=== PATIENT | female | born 1940 | race Caucasian/White ===

== ENCOUNTER → 2024-09-17 12:50 | Outpatient (REF) | payer MEDICARE, BC, SELFPAY | LOC: RAD 12:50 | PROVIDERS: ATTENDING PHYSICIAN Surgery Vascular Surgery; FAMILY PHYSICIAN Student in an Organized Health Care Education/Training Program | DX: I87.2 Venous insufficiency (chronic) (peripheral) (principal); I77.9 Disorder of arteries and arterioles, unspecified | CPT/HCPCS: 93922; 93925; 93970 ==

== ENCOUNTER 2024-09-19 02:21 | Inpatient (IN) | payer MEDICARE, BC, SELFPAY ==
[2024-09-18 20:05] VITALS: BP 177/98
[2024-09-18 20:22] VITALS: BP 198/78
--- NOTE | 2024-09-18 20:34 | ED.GENMED ---
History of Present Illness
General
Chief Complaint: Musculo-Skeletal Complaint
Source: patient
Exam Limitations: none
Time Seen by Provider: 09/18/24 20:11
Nursing documentation reviewed up to this point in time: agreed with
History of Present Illness
History of Present Illness:
84 yr old female with past medical history of A-fib, chronic right leg wound , chronic SOB presents to the ER for evaluation. Patient lives at home with daughter. Patient apparently had a fall on Friday 5 days ago and injured her left foot and
ankle. She was seen at [facility] had negative x-rays. Since then however she has not been able to walk. She feels dizzy lightheaded like she is in a pass out when she stands up and walks. She reports her legs feel heavy. The heavy
leg feeling is not necessarily new but is gotten worse since falling. Now she is not even able to walk on her own which is what prompted today's ER visit.
She denies any fever or chills. She denies vertigo but just feels lightheaded especially when standing.
She has been treated by [facility] wound center for bilateral lower leg wounds for the past several months.
She is followed by cardiology at [facility]. Has a diagnosis of afib, does not like taking the blood thinners and stopped them. only takes aspirin but only takes it every other day. no known hx of copd or chf .
She reports she is chronically short of breath but getting worse recently. Worse with exertion. no recent weight gain.
Phy Exam
General Physical Exam
General Presentation: no apparent distress
General age: appears stated age
General Skin: warm and dry
General Habitus: normal
General Mental: alert
General Hydration: appears well hydrated
Cardiovascular Exam
Cardiovascular Exam: irregularly irregular
Pulmonary Exam
Pulmonary Exam: lungs clear and other (Slight dyspnea on exertion)
Neurological Exam
Neurological Exam: alert and oriented x3
Musculoskeletal Exam
Musculoskeletal Exam: other (Bilateral lower extremities with pulses right lower leg large open wound)
Skin Exam
Skin Exam: normal color and warm/dry
Psychiatric Exam
Psychiatric Exam: normal mood/affect
Course
Orders/Labs/Results
Orders:
Orders
09/18/24 20:41
Electrocardiogram (*1) Stat
Reason for Study: Abdominal Pain
Cardiac Monitoring- Treatment ONCE
EKG- Treatment ONCE
IV Insert/Care/Rem.- Treatment PRN
Orthostatic VS- Treatment ONCE
09/18/24 20:55
Complete Blood Count/With Diff Urgent
Comprehensive Metabolic Panel Urgent
NT-proBNP Urgent
Comment: ADDON
09/18/24 23:02
Chest [CR Chest - 2 Views ] Urgent
Comment:
Reason For Exam: weakness
09/18/24 23:07
0.9% Sodium Chloride 500 ml [Nss] 500 ml IV BOLUS
09/18/24 23:08
Add On- LAB Urgent
Tests Added?: cardiac bnp
09/18/24 23:14
Urinalysis Reflex To Culture Urgent
Date Specimen was Collected: 09/18/24
Time Specimen was Collected: 23:10
Urine Microscopic Reflex Cult Urgent
Abnormal Lab Results
09/18/24 09/18/24
20:55 23:14
Hct 47.5 H %
(37.0-47.0)
MCH 31.1 H pg
(27.0-31.0)
MCHC 32.6 L g/dL
(33.0-37.0)
Absolute Lymphs (auto) 4.4 H 10^3/uL
(1.2-3.4)
Absolute Monos (auto) 0.8 H 10^3/uL
(0.1-0.6)
BUN 39 H mg/dl
(7-17)
Creatinine 1.5 H mg/dL
(0.6-1.0)
Glucose 149 H mg/dl
(70-99)
Calcium 10.3 H mg/dl
(8.4-10.2)
Ur Occult Blood Reflex 1+ A
(Negative)
Urine RBC 3-6 A /HPF
(0-2)
Urine Albumin (Reflex) 2+ A
(Neg - Trace)
09/18/24 20:55
09/18/24 20:55
Vital Signs
Initial and Last Documented VS:
Initial Vital Signs
Pulse Resp BP Pulse Ox
83 16 177/98 99
09/18/24 20:05 09/18/24 20:05 09/18/24 20:05 09/18/24 20:05
Last Documented Vital Signs
Temp Pulse Resp BP Pulse Ox
97.8 F 87 25 198/78 95
09/18/24 23:16 09/18/24 20:30 09/18/24 20:30 09/18/24 20:22 09/18/24 21:00
Dressed Poultry Grader consulted with Physician
Dressed Poultry Grader consulted with physician?: Yes
Name of Physician Consulted: DR Guillen
MDM/Problems Addressed
Differential Diagnosis Includes:
Not limited to weakness dehydration fluid overload CHF COPD
MDM/Problems Addressed:
Patient is a 84-year-old female presents today for evaluation. Patient fell on September 13 after her legs gave out seen a sharona Mcduffie for left foot ankle pain x-rays were negative. Since then she has not had increasing leg weakness is not able to
walk. She also feels very dizzy and lightheaded. Patient has a history of shortness of breath which has been worsening. She does have a history of A-fib and is currently not on anticoagulation. She did stop this on her own. In addition she
stopped taking Eliquis on her own.
In addition patient has chronic leg wounds being managed at wound care by lesly Mcduffie.
On exam patient seems dyspneic with exertion reports again this is not necessarily new but getting worse over the past 1 week. Her BNP is elevated at 3300 with no prior labs for comparison. Her x-ray does feel hazy and with her Lasix being stopped
likely some fluid overload. Her BUN/creatinine however elevated to 39 1.5 no prior comparison labs .
UA neg for infection.
will order a dose of lasix now. With dyspnea,weakness, noncompliance of medication ,likely component of heart failure will recommend admission. Case discussed with the hospitalist
Chronic conditions affecting care:
A-fib stop anticoagulation, history of being on Lasix stopped for least
*Radiology
Radiology exam reviewed: preliminary read by ED provider (fluid overload )
*Pulse Oximetry
SaO2: 99
Oxygen Mode of Delivery: Room air
Patient hypoxic: no
*EKG
Interpreted by ED Provider?: Yes
Heart Rate: 80
Rate: normal
Rhythm: a-fib
*Critical Care Note
Total Time (30-74mins, 75-104mins- exclusive of procedures): Not Applicable
ED Attending Note
-
Portions of this chart may have been created with voice recognition software.� Occasional wrong word or��sound alike� substitutions may have occurred due to the inherent limitations of voice recognition software.
Discharge Plan
Departure
Patient Disposition: Admit
Date of Disposition: 09/19/24
Time of Disposition: 00:23
Admit to: Med/Surg
Admit to doctor: hospitalist
Presentation/result/management discussed w/ accepting MD/DO: Hospitalist
Patient with high blood pressure during this ER visit?: Yes
Condition: Fair
Covid-19: Not Applicable
Discharge Problem:
Weakness, GEORGES (dyspnea on exertion), Fluid overload, Acute renal insufficiency
Prescriptions:
No Action
indapamide 2.5 mg Tablet
2.5 mg PO DAILY
metoprolol tartrate 100 mg Tablet
100 mg PO BID
aspirin [Aspir-81] 81 mg Tablet,Delayed Release (Dr/Ec)
81 mg PO Q OTHER DAY
glimepiride 1 mg Tablet
1 mg PO DAILY
ascorbic acid (vitamin C) [Vitamin C] 500 mg Tablet
500 mg PO DAILY
biotin 10,000 mcg Capsule
10,000 mcg PO
zinc 50 mg Tablet
50 mg PO DAILY
furosemide 20 mg Tablet
20 mg PO PRN PRN (Reason: fluid retention)
Patient Comments:
pt's instructions report 2-3 times/week. pt stopped taking it approx three weeks ago without informing provider
glucosamine-chondroitin 1,500-1,200 mg/30 mL Liquid
PO
ezetimibe-simvastatin [Vytorin 10-40] 10-40 mg Tablet
1 tab PO DAILY
fenofibrate nanocrystallized [Tricor] 145 mg Tablet
145 mg PO DAILY
cholecalciferol (vitamin D3) [Vitamin D3] 125 mcg (5,000 unit) Tablet
125 mcg PO DAILY
Referrals:
UNKNOWN - PT DOES,NOT KNOW [Family Provider]
Interventions
Interventions:
*Risk Screen - Suicide Last Done: 09/18/24 20:37
*General Assessment Last Done: 09/18/24 20:37
*Neglect/Abuse Screening Last Done: 09/18/24 20:37
*ED- Fall Risk Assessment Last Done: 09/18/24 20:37
*ED COVID-19 Vaccine History Last Done: 09/18/24 20:37
ED-Musculoskeletal Assessment Last Done: 09/18/24 21:00
Discharge Date and Time
Print Language: TRISTANIAN
[2024-09-18 20:36] VITALS: BMI 30.7
[2024-09-18 21:04] VITALS: BP 190/91
[2024-09-18 21:07] LABS: Hematocrit 47.5 % (37.0-47.0); Hemoglobin 15.5 g/dL (12.0-16.0); Mean Corp Hgb Conc. 32.6 g/dL (33.0-37.0); Mean Corpuscular Volume 95.2 fL (81.0-99.0); Nucleated Red Blood Cells % 0 %; Platelet Count 183 10^3/uL (130-400); Red Cell Dist. Width 13.5 % (11.5-14.5)
[2024-09-18 21:08] VITALS: BP 201/89
[2024-09-18 21:13] VITALS: BP 190/91; BP 201/89; PULSE 88; PULSE 91
[2024-09-18 21:32] LABS: ALT (SGPT) 14 U/L (0-35); AST (SGOT) 23 U/L (14-36); Albumin 4.6 g/dl (3.5-5.0); Alkaline Phosphatase 101 U/L (38-126); Blood Urea Nitrogen 39 mg/dl (7-17); Calcium 10.3 mg/dl (8.4-10.2); Carbon Dioxide 30 mmol/L (22-30); Chloride 101 mmol/L (98-107); Estimated Creatinine Clearance 30 ml/min; Glucose 149 mg/dl (70-99); Potassium 3.8 mmol/L (3.5-5.1); Sodium 140 mmol/L (135-145); Total Protein 7.4 g/dl (6.3-8.2); eGFR 34.15
[2024-09-18 23:22] LABS: Urine Character Clear (Clear)
[2024-09-18 23:37] VITALS: BP 189/102
[2024-09-18] MEDS: NSS 500 IV (23:40)
[2024-09-19] VITALS (11 sets, daily range): BP systolic 128–179; BP diastolic 73–108; PULSE 74–109; O2SAT 94–95; BMI 29.3
[2024-09-19 00:12] LABS: Urine Squamous Cell None seen /LPF (Few)
[2024-09-19 00:13] LABS: Urine White Cell 0-2 /HPF (0-5)
--- NOTE | 2024-09-19 01:42 | HPS.HSE ---
Family Physician
-
Family Physician: NOT KNOW UNKNOWN - PT DOES
Chief Complaint
-
Weakness, Ataxia
History of Present Illness
Patient is an 84y F with PMH significant for hypertension, DM-II and A-Fib who presents to ED complaining of LE weakness and inability to walk. History obtained from patient and her daughter at the bedside. Patient states that she has had
intermittent issues with LE weakness over the past several months. Her legs feels heavy and she is unsteady. These symptoms typically occur with ambulation and improve with a few minutes of rest. On Friday, she noted that her LLE 'gave out' while
walking and she fell. She denies head injury, LOC, etc. She complained of pain in the L foot and ankle after the fall. She was seen at [facility] ED where x-rays were reportedly negative for fracture / dislocation.
Patient states that her pain has improved since that time; however, she has remained completely unable to stand / walk / etc.
Patient complains of heaviness / weakness sensation in the legs. She denies significant pain, but complains that legs won't hold her weight.
She had non-invasive vascular studies done on 09/17 and has an upcoming appointment with Dr. Carey to review these.
She is followed by Wound Care at [facility] for bilateral LE wounds. Patient notes that her legs have been more edematous and the wounds have been leaking / oozing more as a result.
She complains of shortness of breath with any exertion. This also has been present x months - though is more severe / consistent recently.
She does complain of occasional chest pain / pressure / heaviness - none at present.
Medical History
Past Medical History
Past Medical History: Reports Other
Additional Past Medical History:
Hypertension
Atrial Fibrillation
DM-II
CLL
History of Graves Disease
Venous Insufficiency
Chronic LE Wounds
Skin Cancer
Past Surgical History: Reports Other
Additional Past Surgical History:
Mohs Surgery
x 2
Hernia Repair
Social History
Tobacco: Former Smoker (Quit smoking 40 years ago. Approx 30 pack years total use.)
Alcohol: None
Drug: None
Family History
Family History: Not pertinent
Allergies / Home Medications
Allergies reflects when Allergies were last updated in [facility].
Home Medications with original date entered in [facility]
Allergy/Medication List:
Allergies
Allergy/AdvReac Type Severity Reaction Status Date / Time
No Known Allergies Allergy Unverified 09/18/24 20:08
Home Medications
ascorbic acid (vitamin C) 500 mg tablet (Vitamin C) 500 mg PO DAILY 09/18/24
aspirin 81 mg tablet,delayed release 81 mg PO Q OTHER DAY 09/18/24
biotin 10,000 mcg capsule 10,000 mcg PO 09/18/24
cholecalciferol (vitamin D3) 125 mcg (5,000 unit) tablet (Vitamin D3) 125 mcg PO DAILY 09/18/24
ezetimibe 10 mg-simvastatin 40 mg tablet (Vytorin) 1 tab PO DAILY 09/18/24
fenofibrate nanocrystallized 145 mg tablet (Tricor) 145 mg PO DAILY 09/18/24
furosemide 20 mg tablet 20 mg PO PRN PRN fluid retention 09/18/24
glimepiride 1 mg tablet 1 mg PO DAILY 09/18/24
glucosamine-chondroitin 1,500 mg -1,200 mg/30 mL oral liquid ml PO 09/18/24
indapamide 2.5 mg tablet 2.5 mg PO DAILY 09/18/24
metoprolol tartrate 100 mg tablet 100 mg PO BID 09/18/24
zinc 50 mg tablet 50 mg PO DAILY 09/18/24
Review of Systems
-
History Source: Patient
A 12 point ROS was completed and negative except as noted: Yes
Constitutional: Reports Fatigue; Denies Fever or Chills
EENT: Denies Sore Throat
Respiratory: Reports Trouble Breathing; Denies Cough or Hemoptysis
Cardiac: Reports Chest Pain; Denies Diaphoresis, Palpitations or Syncope
Abdomen/GI: Denies Abdominal Pain, Nausea, Vomiting, Diarrhea, Bloody Stools or Black Stools
: Denies Dysuria, Frequency or Flank Pain
Musculoskeletal: Reports Edema
Neurological: Reports Weakness; Denies Dizzy or Headache
Physical Exam
Vital Signs
Vital Signs
Temp Pulse Resp BP Pulse Ox
97.8 F 73 25 147/81 95
09/18/24 23:16 09/19/24 01:30 09/19/24 01:30 09/19/24 01:00 09/19/24 01:30
Physical Exam
General: Other (84y F in no acute distress.)
HEENT: Moist mucous membranes, PERRLA and Other (No JVD or HJR.)
Respiratory: Clear; No Wheezes, Rales or Rhonchi
Cardiac: S1/S2, Irregular Rhythm and Murmur (II/ NICK)
GI: Soft, Non Tender, Non Distended and Normal Bowel Sounds
Musculoskeletal: No Clubbing, No Cyanosis and Other (2+ pitting edema to the knees bilaterally.)
Skin: Other (Wounds bilateral lower legs with dressings newly placed. No bleeding / strikethrough.)
Neuro: AO x 3
Laboratory Results
-
09/18/24 20:55
09/18/24 20:55
Laboratory Results
Total Bilirubin 0.7 mg/dl (0.2-1.3) 09/18/24 20:55
AST 23 U/L (14-36) 09/18/24 20:55
ALT 14 U/L (0-35) 09/18/24 20:55
Alkaline Phosphatase 101 U/L (38-126) 09/18/24 20:55
Impression/Plan
-
A/P: Patient is an 84y F with PMH significant for A-Fib, HTN and DM-II who presents to ED complaining of LE weakness / ataxia for about one week.
LE Weakness / Ataxia
- Admit for further evaluation and treatment.
- Unclear etiology of new gait dysfunction / LE weakness.
- Does not seem wholly due to edema / CHF / etc.
- PT / OT evaluations.
- Check MR L-spine in the AM.
- Had recent ABIs done for Vascular which suggest RLE infrapopliteal disease.
- Treat CHF as noted below and follow for any clinical changes.
Acute on Chronic HF - Unknown Type
- BNP elevated and pos LE edema on exam.
- IV Lasix daily and follow I/Os, daily weights, etc.
- Update Echo.
- Follow for clinical improvement.
- Patient previously on Lasix about three times per week but notes that she has not been taking it lately.
EMILIE v CKD
- SCr = 1.5 with no prior values for comparison.
- Follow for changes with diuresis. Follow over the next 48-72 hours to establish baseline.
Atrial Fibrillation - Unknown Type
- Stable. Rate controlled on current regimen.
- Continue Toprol with holding parameters.
- Patient has declined OAC, Watchman, etc in the past despite risk of embolic phenomena / stroke / etc.
Benign Hypertension
- BP significantly elevated on initial arrival.
- Follow for improvement with diuresis as noted above. Adjust regimen as needed.
DM-II
- Stable. Hold sulfonylurea.
- Follow glucose and cover with SSI as needed.
- Update A1C.
History of Graves Disease
- Check TFTs.
Chronic Venous Insufficiency
Chronic LE Wounds
- Wound Care eval for local care recommendations during stay.
DVT Prophylaxis: Lovenox
Code Status: Full
[2024-09-19] MEDS: LASIX 40 MG IV ×2 (01:43→08:47)
[2024-09-19 04:13] LABS: Hematocrit 44.2 % (37.0-47.0); Hemoglobin 14.6 g/dL (12.0-16.0); Mean Corp Hgb Conc. 33.0 g/dL (33.0-37.0); Mean Corpuscular Volume 94.4 fL (81.0-99.0); Platelet Count 169 10^3/uL (130-400); Red Cell Dist. Width 13.5 % (11.5-14.5)
[2024-09-19 04:31] LABS: Blood Urea Nitrogen 36 mg/dl (7-17); Calcium 10.3 mg/dl (8.4-10.2); Carbon Dioxide 32 mmol/L (22-30); Chloride 101 mmol/L (98-107); Estimated Creatinine Clearance 31 ml/min; Glucose 121 mg/dl (70-99); HDL Cholesterol 65 mg/dl; LDL Cholesterol, Calculated 53 mg/dl; Potassium 3.9 mmol/L (3.5-5.1); Sodium 139 mmol/L (135-145); Very Low Density Lipoprotein 29 mg/dl (0-30); eGFR 37.10
[2024-09-19 04:40] LABS: Troponin I < 0.012 ng/ml
[2024-09-19 07:35] LABS: Glucose - Point of Care 133 mg/dl (70-99)
[2024-09-19] MEDS: LOPRESSOR 100 MG PO ×2 (08:46→20:13)
[2024-09-19] MEDS: FLUSH (NSS) 2 FLUSH IV ×2 (08:47→13:47)
[2024-09-19] MEDS: ASPIR LOW (ENTERIC COATED) 81 MG PO (08:47)
[2024-09-19 09:38] LABS: Free T3 4.41 pg/ml (2.77-5.27)
[2024-09-19 09:49] LABS: Troponin I < 0.012 ng/ml
--- NOTE | 2024-09-19 10:00 | PTCARENOTE ---
Pt normally continent of urine but it is difficult for pt to transfer to commode right now with leg weakness. Pt wants to use purewick. Discussed concern for infection. Pt agreeable to using purewick for Lasix IV this morning and then removing it.
Plan to use either commode or bedpan for elimination.
--- NOTE | 2024-09-19 10:13 | W.PN.HOSP.TC ---
Today's Communication/Plan
-
see PN
Assessment / Plan
Assessment / Plan
84yo F with PMHX of chronic ambulatory deficiency, CAD HLD, DM came with inability to carry weight on her legs started after fall 5 days before admission, when her L leg gave out. After that she also experienced some sacral tenderness as she fell
down on her buttocks. XR in [facility] reportedly neg for Fx as patient was evaluated there after the fall. No saddle paresthesia, urianry or stool incontinence or retention reported, No LE paresthesias. Patient also had a long Hx of
walking with walker with intermittent b/l LE stiffness. ALso LE wounds with leukocytosis and swelling while patient stopped her Lasix
A/P:
#Ambulatory dysfunction s/p fall on chronic ambulatory deficiency with LE stiffness
No LE pain concerning for Fx
MRI lumbar pending
PT/OT
Neuro eval with recent Hx of LLE suddden weakness causing fall
check AM cortisol
With Hx of fib off Ac - MRI brain
#PAD
#venous insufficiency with LE wounds and mild surrounding cellulitis
#Leukocytosis
already has appt with
wound care while inpatient
no respiratory symptoms, chest XR without pneumonia, no UTI sings on UA
Ancef
#CHF, unspecified, acute on chronic
#Atrial Fibrillation - Unknown Type
Stable. Rate controlled on current regimen.
Continue Toprol with holding parameters.
Patient has declined OAC, Watchman, etc in the past despite risk of embolic phenomena / stroke / etc.
Patient stopped taking her q48h lasix few weeks ago
LE edema on admission
Echo, Lasix, follow daily weight, Cr, electrolytes
telemetry
Trops WNL
#Hyperthyroidism, subclinical with Hx of graves disease
FT4 WNL, check FT3
#CKD stage 3b
follow Cr
#Mild hypercalcemia
check PTH and vit D 0.25
no overt signs of maligancy on chest XR
#DM type 2 with neuropathy
AccuCheck, DM diet, Insulin SS
hold glimepiride, check HgbA1c
#CAD
#EssentiL HTN
#HLD
cont home meds, adjust fenofibrate according to kidney function
DVT ppx hep
Full code
I have spent at least 60min reviewing chart, test results, communication with cosnultants and providing direct patient care
Anticipated Discharge: > 48 hours
Subjective/Interval History
-
Date of Service: September 19, 2024
Objective Data
-
Labs:
Laboratory Results
09/19/24
04:06
WBC 14.1 H
Hgb 14.6
Hct 44.2
Plt Count 169
Sodium 139
Potassium 3.9
Chloride 101
Carbon Dioxide 32 H
BUN 36 H
Creatinine 1.4 H
Glucose 121 H
Calcium 10.3 H
Vital Signs:
Vital Signs
Temp Pulse Resp BP Pulse Ox
97.3 F 89 18 162/75 96
09/19/24 07:29 09/19/24 08:46 09/19/24 07:29 09/19/24 08:46 09/19/24 07:29
I&O
09/18/24 09/19/24 09/20/24
06:59 06:59 06:59
Output Total 800 / 800
Balance -800 / -800
Review of Systems
-
History Source: Patient
All other systems: Reviewed and negative
Physical Exam
-
General: No Apparent Distress
HEENT: Normocephalic
Cardiac: Regular Rhythm
GI: Soft, Nontender and Nondistended
Musculoskeletal: No Clubbing and No Cyanosis
Neuro: Awake, Alert, Oriented, AO x 3 and No Motor Deficits
Psych: Calm
--- NOTE | 2024-09-19 10:37 | W.PN.UPDATE ---
Update Note
Progress Note Update
Discussed suppressed TSH with Endo: recheck TFT as an outpatient probably no later than 4 weeks. With currently no overt signs of hyperthyroidism - no direct indication for methimazole
--- NOTE | 2024-09-19 10:49 | CON.NEURO ---
Neuro Assessment/Plan
Assessment
84 year old woman, (diabetic) peripheral neuropathy
check Acetylcholine receptor ab r/o MG
no evidence for stroke, no need for brain MRI. and in any case she should be on blood thinners
No need for lumbar MRI, discussed with patient low yield, and if we found something she wouldn't want surgery anyway.
also discussed EMG after wounds heal - again low yield and she'd rather not.
afib, she chose to not be on anticoagulants.
Consultation
Order
Date of Consultation: 09/19/24
Requesting Provider: Baljit Ames
Reason for Consult: leg weakness
Subjective/Objective
Subjective Data
Date of Service: September 19, 2024
from h&p:
Patient is an 84y F with PMH significant for hypertension, DM-II and A-Fib who presents to ED complaining of LE weakness and inability to walk. History obtained from patient and her daughter at the bedside. Patient states that she has had
intermittent issues with LE weakness over the past several months. Her legs feels heavy and she is unsteady. These symptoms typically occur with ambulation and improve with a few minutes of rest. On Friday, she noted that her LLE 'gave out' while
walking and she fell. She denies head injury, LOC, etc. She complained of pain in the L foot and ankle after the fall. She was seen at [facility] ED where x-rays were reportedly negative for fracture / dislocation.
Patient states that her pain has improved since that time; however, she has remained completely unable to stand / walk / etc.
Patient complains of heaviness / weakness sensation in the legs. She denies significant pain, but complains that legs won't hold her weight.
She had non-invasive vascular studies done on 09/17 and has an upcoming appointment with Dr. Carey to review these.
She is followed by Wound Care at [facility] for bilateral LE wounds. Patient notes that her legs have been more edematous and the wounds have been leaking / oozing more as a result.
She complains of shortness of breath with any exertion. This also has been present x months - though is more severe / consistent recently.
She does complain of occasional chest pain / pressure / heaviness - none at present.
patient reports the symptoms seem to affect both legs for the past ~1 year
Objective Data
Vital Signs
Temp Pulse Resp BP Pulse Ox
36.3 C 89 18 162/75 96
09/19/24 07:29 09/19/24 08:46 09/19/24 07:29 09/19/24 08:46 09/19/24 07:29
Lab Results
09/19/24 04:06
09/19/24 04:06
Sodium 139 mmol/L (135-145) 09/19/24 04:06
Potassium 3.9 mmol/L (3.5-5.1) 09/19/24 04:06
BUN 36 mg/dl (7-17) H 09/19/24 04:06
Glucose 121 mg/dl (70-99) H 09/19/24 04:06
Calcium 10.3 mg/dl (8.4-10.2) H 09/19/24 04:06
Ewc-Q-Llhhgshkhpe Pept 3300 pg/ml 09/18/24 20:55
LDL Cholesterol, Calc 53 mg/dl 09/19/24 04:06
Patient Allergies
No Known Allergies Allergy (Unverified 09/18/24 20:08)
Physical Exam
-
AAOx3, speech clear, language intact
VFF, EOMI, face symmetric
full strength b/l UE
b/l LE 4/5 proximally, 5/5 distal.
right hallux dystonia.
severe vibratory loss in ankles, moderate in the knees
bilateral LE wounds above ankles, wrapped.
+bradykinesia, no cogwheel rigidity, no tremor
FNF distal 1/3 dysmetria
Medications
-
Active Medications
Generic Name Dose Route Start Last Admin
Trade Name Freq PRN Reason Stop Dose Admin
Acetaminophen 650 mg 09/19/24 03:28
Acetaminophen 325 Mg Tablet PO 10/17/24 03:27
Q4HPRN PRN
Mild Pain / Temp > 101
Aspirin 81 mg 09/19/24 08:00 09/19/24 08:47
Aspirin 81 Mg (Enteric Coated) Tablet PO 10/17/24 07:59 81 mg
DAILY EDMOND Administration
Atorvastatin Calcium 20 mg 09/20/24 18:00
Atorvastatin (Lipitor) 20 Mg Tablet PO 10/18/24 17:59
QPM EDMOND
Dextrose 12.5 grams 09/19/24 03:28
Dextrose 50% (0.5 Grams/Ml) 50 Ml Syringe IV 10/17/24 03:27
[id number] PRN
hypoglycemia
Protocol
Diazepam 2 mg 09/19/24 08:08
Diazepam 2 Mg Tablet PO
ONCE PRN PRN
cert occupational therapy asst to MRI
Ezetimibe 10 mg 09/20/24 18:00
Ezetimibe (Zetia) 10 Mg Tablet PO 10/18/24 17:59
QPM EDMOND
Fenofibrate 48 mg 09/20/24 08:00
Fenofibrate 48 Mg Tablet PO 10/18/24 07:59
DAILY EDMOND
Furosemide 40 mg 09/19/24 08:00 09/19/24 08:47
Furosemide 40 Mg (10 Mg/Ml) 4 Ml Vial IV 10/17/24 07:59 40 mg
DAILY EDMOND Administration
Glucagon 1 mg 09/19/24 03:28
Glucagon 1 Mg Vial IM 10/17/24 03:27
PRN PRN
hypoglycemia
Protocol
Heparin Sodium 5,000 units 09/19/24 16:00
Heparin 5,000 Units/Ml 1 Ml Vial SC 10/17/24 15:59
Q8 EDMOND
Cefazolin Sodium 1 gram in 5 mls @ 60 mls/hr 09/19/24 12:00
Ancef IV
Q8H EDMOND
Insulin Aspart 0 units 09/19/24 07:30 09/19/24 08:26
Insulin Aspart Low Resistance 300 Units/3 Ml Pen.Injctr SC 10/17/24 07:29 Not Given
AC EDMOND
Protocol
Metoprolol Tartrate 100 mg 09/19/24 08:00 09/19/24 08:46
Metoprolol 100 Mg Regular Release Tablet PO 10/17/24 07:59 100 mg
BID EDMOND Administration
Sodium Chloride 0 flush 09/19/24 04:00 09/19/24 08:47
Sodium Chloride 0.9% (Flush) Syringe IV 10/17/24 03:59 2 flush
PER PROTOCOL EDMOND Administration
Home Medications
�Medication �Instructions �Recorded
ascorbic acid (vitamin C) 500 mg 500 mg PO DAILY 09/18/24
tablet (Vitamin C)
aspirin 81 mg tablet,delayed 81 mg PO Q OTHER DAY 09/18/24
release
biotin 10,000 mcg capsule 10,000 mcg PO 09/18/24
cholecalciferol (vitamin D3) 125 125 mcg PO DAILY 09/18/24
mcg (5,000 unit) tablet (Vitamin
D3)
ezetimibe 10 mg-simvastatin 40 mg 1 tab PO DAILY 09/18/24
tablet (Vytorin)
fenofibrate nanocrystallized 145 145 mg PO DAILY 09/18/24
mg tablet (Tricor)
furosemide 20 mg tablet 20 mg PO PRN PRN fluid retention 09/18/24
glimepiride 1 mg tablet 1 mg PO DAILY 09/18/24
glucosamine-chondroitin 1,500 mg ml PO 09/18/24
-1,200 mg/30 mL oral liquid
indapamide 2.5 mg tablet 2.5 mg PO DAILY 09/18/24
metoprolol tartrate 100 mg tablet 100 mg PO BID 09/18/24
zinc 50 mg tablet 50 mg PO DAILY 09/18/24
[2024-09-19 11:00] LABS: Glycohemoglobin (HgbA1c) 6.9 % (4.0-5.6)
--- NOTE | 2024-09-19 12:30 | PTCARENOTE ---
Pt refusing to have accu check obtained at lunch time stating that she will only let us check her blood sugar once a day. Pt states she only checks it once a week at home and it is always fine. RN attempted to explain reasoning of why we are
checking her blood sugar throughout the course of the day. Pt verbalized understanding but still refusing. Made Dr. Ames aware of above.
[2024-09-19] MEDS: ANCEF 5 IV ×2 (13:47→20:11)
--- NOTE | 2024-09-19 15:37 | CM ---
CM met with pt and dtr/Gissel bedside
Pt resides with her dtr in a ranc[place] with 3 EARL
Pt is indep with ambulation and personal care
She utilizes a SPC on steps, WW for short distances and has a transport chair for longer distances
Dtr works out of the home and pt alone during the day
Pt has hx with private paying for [employer] with [employer]- was set to start 24 hours weekly while dtr goes to work starting tomorrow
PCP- Harriet Gomez
Rx- [employer]
SNF recs by therapy
Pt requesting [facility], open to other locations if needed
She is aware that Medicare has certain qualifying diagnoses
Encouraged SNF backups
PAC provided and referrals sent via [facility]
Pt's was a rocio
Discharge Disposition -anticipate SNF, pt requesting [facility]
[2024-09-19] MEDS: ZETIA 10 MG PO (18:10)
[2024-09-19] MEDS: TRICOR 48 MG PO (18:10)
[2024-09-19] MEDS: LIPITOR 20 MG PO (18:10)
[2024-09-20] VITALS (7 sets, daily range): BP systolic 145–161; BP diastolic 72–87; PULSE 85–87; BMI 28.5
[2024-09-20] MEDS: ANCEF 5 IV ×3 (03:06→19:56)
[2024-09-20 07:31] LABS: Glucose - Point of Care 151 mg/dl (70-99)
[2024-09-20 08:02] LABS: Hematocrit 44.2 % (37.0-47.0); Hemoglobin 14.7 g/dL (12.0-16.0); Mean Corp Hgb Conc. 33.3 g/dL (33.0-37.0); Mean Corpuscular Volume 93.2 fL (81.0-99.0); Platelet Count 182 10^3/uL (130-400); Red Cell Dist. Width 13.4 % (11.5-14.5)
[2024-09-20 08:03] LABS: Nucleated Red Blood Cells % 0 %
[2024-09-20] MEDS: ASPIR LOW (ENTERIC COATED) 81 MG PO (08:12)
[2024-09-20] MEDS: LOPRESSOR 100 MG PO ×2 (08:12→19:55)
[2024-09-20] MEDS: LASIX 40 MG IV (08:12)
[2024-09-20 08:27] LABS: ALT (SGPT) 10 U/L (0-35); AST (SGOT) 21 U/L (14-36); Albumin 4.3 g/dl (3.5-5.0); Alkaline Phosphatase 97 U/L (38-126); Blood Urea Nitrogen 48 mg/dl (7-17); Calcium 10.2 mg/dl (8.4-10.2); Carbon Dioxide 28 mmol/L (22-30); Chloride 97 mmol/L (98-107); Estimated Creatinine Clearance 25 ml/min; Glucose 149 mg/dl (70-99); Magnesium 1.8 mg/dl (1.6-2.3); Potassium 3.5 mmol/L (3.5-5.1); Sodium 136 mmol/L (135-145); Total Protein 7.0 g/dl (6.3-8.2); eGFR 29.39
[2024-09-20 08:56] LABS: Cortisol, Random 27.6 ug/dl
--- NOTE | 2024-09-20 11:14 | WOUNDNOTE ---
R MEDIAL LOWER LEG
--- NOTE | 2024-09-20 11:16 | WOUNDNOTE ---
L MEDIAL LOWER LEG
--- NOTE | 2024-09-20 11:20 | WOUNDNOTE ---
WON RN note: Patient admitted with acute renal insufficiency, S/P fall.
See H&P for complete history. Lives with daughter.
PMH: Past Medical History: Hypertension, Atrial Fibrillation, DM-II, CLL, History of Graves Disease, Venous Insufficiency-follows with Dr. Carey.
Chronic LE Wounds-goes to [facility] wound center and Skin Cancer-Moh's
Wound Location and type/assessment: Patient admitted with: R medial lower leg full thickness venous/arterial ulcer. Patient reports she has had wound since april and goes to see Dr. Olmos at [facility]. Last week she saw Dr. Caldwell
and had wound debridement done then. Today base is mix of pink, brown and lópez eschar, + odor. Reviewed current wound care with patient, compression too painful she reports. Arterial studies done last week show R TBI 0.14, L TBI 0.85. + palpable
pedal pulse in L leg, non palpable on R leg. Patient states she has an apt with Dr. Carey this Friday. Heels are intact, blanchable red, tiny scab on R heel, foams in use. Air chair cushion in use under heels. L medial lower leg with small dried
up venous ulcer, no drainage on dressing. L lateral ankle blanchable red, s/p fall at home. Patient able to turn self to side, blanchable red sacrum.
Appetite: good. Encourage protein in diet.
Pressure redistribution devices in place: On Accumax, pillow under air cushion added to offload heels. Pressure ulcer prevention measures reviewed with patient, states she understands. Patient gets oob to commode.
Plan: Local wound care applied, will order Dakin's WTD dressing daily. Confirmed wound care orders with Dr. Marie and suggested vascular may want to see patient while in hospital. Updated nurse Ankur. Gave patient information on wound center here,
upon request of patient. Updated care plan and will follow as needed.
Note to case management of equipment requested for discharge: VN if patient can't do self.
Recommend follow up at [facility] or wound care center upon discharge.
--- NOTE | 2024-09-20 12:35 | W.PN.HOSP.TC ---
Today's Communication/Plan
-
Vascular input
DC Lasix
Trend creatinine
Monitor blood pressure
Assessment / Plan
Assessment / Plan
84yo F with PMHX of chronic ambulatory deficiency, CAD HLD, DM came with inability to carry weight on her legs started after fall 5 days before admission, when her L leg gave out. After that she also experienced some sacral tenderness as she fell
down on her buttocks. XR in [facility] reportedly neg for Fx as patient was evaluated there after the fall. No saddle paresthesia, urianry or stool incontinence or retention reported, No LE paresthesias. Patient also had a long Hx of
walking with walker with intermittent b/l LE stiffness. ALso LE wounds with leukocytosis and swelling while patient stopped her Lasix
A/P:
#PAD
#venous insufficiency with LE wounds and mild surrounding cellulitis
#Leukocytosis
wound care while inpatient
no respiratory symptoms, chest XR without pneumonia, no UTI sings on UA
Ancef
Will ask vascular input for right lower extremity wound/ulcer with abnormal JARRED
#Ambulatory dysfunction s/p fall on chronic ambulatory deficiency with LE stiffness
No LE pain concerning for Fx
PT/OT
Neuro eval with recent Hx of LLE sudden weakness causing fall-myasthenia gravis lab pending
cortisol wnl
Neuro recs noted
# Mild acute on chronic HFpEF secondary to noncompliance with medication
#Atrial Fibrillation - Unknown Type
Stable. Rate controlled on current regimen.
Continue Toprol with holding parameters.
Patient has declined OAC, Watchman, etc in the past despite risk of embolic phenomena / stroke / etc.
Patient stopped taking her q48h lasix few weeks ago
LE edema on admission
Echo with EF of 55%. Normal left ventricular chamber size. Normal left ventricular systolic function. Normal regional wall motion. Mild concentric LVH. Mild tricuspid regurgitation. PASP of 30 to 35 mmHg.
telemetry
Trops WNL
#Hyperthyroidism, subclinical with Hx of graves disease
Dr. Ames-Discussed suppressed TSH with Endo: recheck TFT as an outpatient probably no later than 4 weeks. With currently no overt signs of hyperthyroidism - no direct indication for methimazole
# Mild EMILIE on CKD stage 3b
follow Cr
Creat of 1.4 bumped to 1.7
DC IV diuretics
#Mild hypercalcemia
check PTH and vit D 0.25
no overt signs of maligancy on chest XR
#DM type 2 with neuropathy
AccuCheck, DM diet, Insulin SS
hold glimepiride, check HgbA1c at 6.9
#CAD
#EssentiL HTN
#HLD
cont home meds, adjust fenofibrate according to kidney function
DVT ppx hep
Full code
PT/OT SNF.
Anticipated Discharge: 24 - 48 hours
Subjective/Interval History
-
Date of Service: September 20, 2024
States lower extremity edema has improved
Objective Data
-
Labs:
Laboratory Results
09/20/24
07:10
WBC 15.7 H
Hgb 14.7
Hct 44.2
Plt Count 182
Sodium 136
Potassium 3.5
Chloride 97 L
Carbon Dioxide 28
BUN 48 H
Creatinine 1.7 H
Glucose 149 H
Calcium 10.2
Total Bilirubin 0.9
AST 21
ALT 10
Alkaline Phosphatase 97
Vital Signs:
Vital Signs
Temp Pulse Resp BP Pulse Ox
97.8 F 100 18 161/86 94
09/20/24 06:54 09/20/24 06:54 09/20/24 06:54 09/20/24 06:54 09/20/24 06:54
I&O
09/19/24 09/20/24 09/21/24
06:59 06:59 06:59
Intake Total 1220 / 1220
Output Total 800 / 800 1600 / 1600
Balance -800 / -800 -380 / -380
Physical Exam
-
General: No Apparent Distress
HEENT: Normocephalic
Cardiac: Regular Rhythm
GI: Soft, Nontender and Nondistended
Musculoskeletal: No Clubbing, No Cyanosis and Other (Right medial lower leg wound noted)
Neuro: Awake, Alert, Oriented, AO x 3 and No Motor Deficits
Psych: Calm
Data Reviewed
-
Total Time Spent with Patient (in minutes): 55
--- NOTE | 2024-09-20 13:34 | CM ---
Addendum entered by Kelvin Nicole 09/20/24 15:57:
Spoke w/ patient to update on acute rehab determination. Patient understandable of needing SNF placement instead. Patient interested in [facility] and [facility] as options. CM reviewed facilities that accepted patient
([facility], [facility], [facility]), [facility] still pending response. Patient not interested in [facility] or [facility], agreeable to [facility] remaining as an option
Referral sent to [facility]
Original Note:
Chart reviewed. Therapy rec skilled rehab at d/c. Patient requesting [facility].
Discussed w/ [facility], after review, does not look like patient will be appropriate for acute rehab, doesn't have medical dx for acute level
SNF referrals prev completed
--- NOTE | 2024-09-20 13:59 | CON.VAS ---
Addendum entered and electronically signed by Alessio Carey III, MD 09/20/24 18:03:
This patient was seen and examined in collaboration with MAGGIE Xiao. I agree with the history and physical exam as well as the assessment and plan. I have the following additions:
Patient known to me from recent outpatient visit for wound evaluation
She has a prior skin cancer and underwent Mohs procedure near the site of the current wound
She cannot remember the exact diagnosis but the cargo service supervisor was in [facility]
Now has a nonhealing right medial distal calf/ankle wound for several months (she thinks it started in April)
No history of inflammatory conditions
Wound has never been biopsied by her report
Lower extremity arterial studies personally reviewed and are abnormal. Severely reduced TBI on the right
Isolated venous reflux is identified in the right calf great saphenous vein.
On physical exam she is well-appearing
Her feet/toes are pink and warm
No wounds on her feet or toes
See clinical images for appearance of the medial distal calf/ankle wound
Necrotic eschar is present
The wound looks to be ischemic and her history raises concerns for another process (skin cancer). I think she would benefit from a lower extremity arteriogram and possible endovascular intervention. Biopsy of the wound would be helpful given her
history. The technical aspects of this procedure were discussed with her in detail. The benefits and rationale for this approach were discussed with her in detail. Operative risks were discussed with her in detail including but not limited to
arterial access site injury, bleeding, infection, contrast nephropathy, distal embolization and the inability to successfully complete endovascular intervention. I was also clear that the intervention may not completely heal her wound. She
expressed a clear understanding of our conversation. She would like to discuss my recommendations with her family before making a decision. If she decides to move forward we could do the arteriogram and biopsy of the wound on 09/21/2024.
Signed:
Alessio Carey III, MD
Vascular Surgery
[facility]
Original Note:
Consultation
Consultation Request
Date/Time Consultation Performed: 09/20/2024 12:30 PM
Performing Provider: Cherry
Reason for Consultation: Right leg nonhealing wound
Medical History
-
Chief Complaint: Bilateral leg weakness
History of Present Illness:
84-year-old female with past medical history significant for hypertension, diabetes, A-fib (not on anticoagulation) who presented to the emergency department for lower extremity weakness. Patient admits to feeling unsteady on her legs for several
months. She complains of heaviness to bilateral lower extremities. Prior to admission she states her legs 'gave out' while she was walking which led to a fall. She was seen in [facility]'s emergency room after the fall and states her x-rays
showed no fractures. Patient is known to the vascular service, last seen in our office on 08/25/[address] Carey to monitor wound healing. Patient follows with wound care center at [facility].
Vascular consult for PAD evaluation. Patient seen at bedside this afternoon with Dr. Carey.
Past Medical History
Past Medical History: Other (Hypertension, A-fib not on anticoagulation, type 2 diabetes, CLL, Graves', venous insufficiency, chronic lower extremity wounds, skin cancer)
Past Surgical History: Other (Mohs Surgery, x 2, Hernia Repair)
Social History
Tobacco: Former Smoker (Quit 40 years ago)
Alcohol: None
Drug: None
Family History
Family History: Reviewed & Not Pertinent
Allergies / Home Medications
Allergy/AdvReac Type Severity Reaction Status Date / Time
No Known Allergies Allergy Unverified 09/18/24 20:08
�Medication �Instructions �Recorded �Confirmed �Type
ascorbic acid (vitamin C) 500 mg 500 mg PO DAILY Supplement 09/18/24 09/18/24 History
tablet (Vitamin C)
aspirin 81 mg tablet,delayed 81 mg PO Q OTHER DAY Blood Clot 09/18/24 09/18/24 History
release Prevention/Tx
biotin 10,000 mcg capsule 10,000 mcg PO Supplement 09/18/24 History
cholecalciferol (vitamin D3) 125 125 mcg PO DAILY Supplement 09/18/24 09/18/24 History
mcg (5,000 unit) tablet (Vitamin
D3)
ezetimibe 10 mg-simvastatin 40 mg 1 tab PO QPM High Cholesterol 09/18/24 09/19/24 History
tablet (Vytorin)
fenofibrate nanocrystallized 145 145 mg PO QPM High Cholesterol 09/18/24 09/19/24 History
mg tablet (Tricor)
furosemide 20 mg tablet 20 mg PO PRN PRN fluid retention 09/18/24 09/18/24 History
glimepiride 1 mg tablet 1 mg PO DAILY Diabetes 09/18/24 09/18/24 History
glucosamine-chondroitin 1,500 mg ml PO ARTHRITIS 09/18/24 History
-1,200 mg/30 mL oral liquid
indapamide 2.5 mg tablet 2.5 mg PO DAILY Blood Pressure 09/18/24 09/18/24 History
metoprolol tartrate 100 mg tablet 100 mg PO BID Blood Pressure 09/18/24 09/18/24 History
zinc 50 mg tablet 50 mg PO DAILY Supplement 09/18/24 09/18/24 History
Review of Systems
-
History Source: Patient
All other systems: Negative unless noted
Constitutional: Reports No Symptoms
EENT: Reports No Symptoms
Respiratory: Reports No Symptoms
Cardiac: Reports No Symptoms
Vascular: Denies Leg Pain / Claudication
Abdomen/GI: Reports No Symptoms
: Reports No Symptoms
Musculoskeletal: Reports No Symptoms
Skin: Reports Other (Nonhealing lower extremity wounds)
Neurological: Reports No Symptoms
Physical Exam
Vital Signs
Temp Pulse Resp BP Pulse Ox
97.9 F 87 18 146/72 95
09/20/24 11:03 09/20/24 11:03 09/20/24 11:03 09/20/24 11:03 09/20/24 11:03
Lab Results
07/28/25 07:10
09/20/24 07:10
Troponin I Cancelled 09/19/24 15:28
Oor-O-Qavonrfyhse Pept 3300 pg/ml 09/18/24 20:55
Physical Exam
General: No Apparent Distress
HEENT: Normocephalic and Atraumatic
Respiratory: Non Labored Respirations
Cardiac: Negative JVD
GI: Soft and Non Tender
Musculoskeletal: No Clubbing, No Cyanosis and No Edema
Skin: Warm, Dry and Other (See wound care notes for images)
Neuro: Awake, Alert and Oriented
Psych: Calm
Pulses: Left Femoral: Doppler (nonpalp), Right Femoral: +1, Left Dorsalis Pedis: +1, Right Dorsalis Pedis: Doppler and Bilateral Posterior Tibial: Doppler (nonpalp)
Assessment / Plan
-
84-year-old female with nonhealing lower extremity wounds, here for complaint of bilateral leg heaviness/weakness
Plan:
Right lower extremity arteriogram when creatinine stable (tomorrow versus Friday)
N.p.o. after midnight for possible arteriogram
BMP in the morning
Continue local wound care
Data Reviewed
-
Ultrasound: Discussed with Patient
Labs: Labs Reviewed by me
[2024-09-20 16:27] LABS: Vitamin D, 25-OH*** 51.0 ng/mL (30-80)
[2024-09-20] MEDS: LIPITOR 20 MG PO (16:50)
[2024-09-20] MEDS: ZETIA 10 MG PO (16:51)
[2024-09-20] MEDS: TRICOR 48 MG PO (16:51)
[2024-09-21 03:49] VITALS: BP 128/74
[2024-09-21] MEDS: ANCEF 5 IV ×3 (05:02→19:58)
[2024-09-21 05:05] VITALS: BMI 28.4
[2024-09-21 05:10] LABS: Glucose - Point of Care 107 mg/dl (70-99)
[2024-09-21 07:45] LABS: Hematocrit 43.3 % (37.0-47.0); Hemoglobin 14.4 g/dL (12.0-16.0); Mean Corp Hgb Conc. 33.3 g/dL (33.0-37.0); Mean Corpuscular Volume 92.3 fL (81.0-99.0); Platelet Count 174 10^3/uL (130-400); Red Cell Dist. Width 13.3 % (11.5-14.5)
[2024-09-21 07:50] VITALS: BP 168/96
[2024-09-21 07:59] LABS: Blood Urea Nitrogen 51 mg/dl (7-17); Calcium 10.0 mg/dl (8.4-10.2); Carbon Dioxide 33 mmol/L (22-30); Chloride 95 mmol/L (98-107); Estimated Creatinine Clearance 29 ml/min; Glucose 101 mg/dl (70-99); Potassium 3.0 mmol/L (3.5-5.1); Sodium 136 mmol/L (135-145); eGFR 34.15
[2024-09-21 08:07] LABS: Glucose - Point of Care 95 mg/dl (70-99)
[2024-09-21] MEDS: LOPRESSOR 100 MG PO ×2 (08:33→19:58)
[2024-09-21] MEDS: ASPIR LOW (ENTERIC COATED) 81 MG PO (08:33)
[2024-09-21 09:31] LABS: Nucleated Red Blood Cells % 0 %
[2024-09-21 11:13] VITALS: BP 147/71
[2024-09-21 11:49] LABS: Glucose - Point of Care 116 mg/dl (70-99)
--- NOTE | 2024-09-21 12:16 | W.PN.HOSP.TC ---
Today's Communication/Plan
-
OR Friday
Trend creatinine
Hold diuretic
Continue antibiotic
Assessment / Plan
Assessment / Plan
84yo F with PMHX of chronic ambulatory deficiency, CAD HLD, DM came with inability to carry weight on her legs started after fall 5 days before admission, when her L leg gave out. After that she also experienced some sacral tenderness as she fell
down on her buttocks. XR in [facility] reportedly neg for Fx as patient was evaluated there after the fall. No saddle paresthesia, urianry or stool incontinence or retention reported, No LE paresthesias. Patient also had a long Hx of
walking with walker with intermittent b/l LE stiffness. ALso LE wounds with leukocytosis and swelling while patient stopped her Lasix
A/P:
#PAD
#venous insufficiency with LE wounds and mild surrounding cellulitis
#Leukocytosis
wound care while inpatient
no respiratory symptoms, chest XR without pneumonia, no UTI sings on UA
Ancef
Significantly abnormal ABIs
Vascular surgery planning for arteriogram on Friday.
#Ambulatory dysfunction s/p fall on chronic ambulatory deficiency with LE stiffness
No LE pain concerning for Fx
PT/OT
Neuro eval with recent Hx of LLE sudden weakness causing fall-myasthenia gravis lab pending
cortisol wnl
Neuro recs noted
# Mild acute on chronic HFpEF secondary to noncompliance with medication
#Atrial Fibrillation - Unknown Type
Stable. Rate controlled on current regimen.
Continue Toprol with holding parameters.
Patient has declined OAC, Watchman, etc in the past despite risk of embolic phenomena / stroke / etc.
Patient stopped taking her q48h lasix few weeks ago
LE edema on admission
Echo with EF of 55%. Normal left ventricular chamber size. Normal left ventricular systolic function. Normal regional wall motion. Mild concentric LVH. Mild tricuspid regurgitation. PASP of 30 to 35 mmHg.
telemetry
Trops WNL
#Hyperthyroidism, subclinical with Hx of graves disease
Dr. Amse-Discussed suppressed TSH with Endo: recheck TFT as an outpatient probably no later than 4 weeks. With currently no overt signs of hyperthyroidism - no direct indication for methimazole
# Mild EMILIE on CKD stage 3b
follow Cr
Creatinine at 1.5
DC IV diuretics
Unknown baseline. Obtain records from outside hospital. Patient and daughter does not know baseline creatinine.
#Mild hypercalcemia
check PTH and vit D 0.25
no overt signs of malignancy on chest XR
#DM type 2 with neuropathy
AccuCheck, DM diet, Insulin SS
hold glimepiride, check HgbA1c at 6.9
#CAD
#Essential HTN
#HLD
cont home meds, adjust fenofibrate according to kidney function
DVT ppx hep
Full code
PT/OT SNF.
Discussed with patient daughter at bedside in detail.
Anticipated Discharge: > 48 hours
Subjective/Interval History
-
Date of Service: September 21, 2024
Patient denies any leg pain states
Objective Data
-
Labs:
Laboratory Results
09/21/24
07:09
WBC 13.4 H
Hgb 14.4
Hct 43.3
Plt Count 174
Sodium 136
Potassium 3.0 L
Chloride 95 L
Carbon Dioxide 33 H
BUN 51 H
Creatinine 1.5 H
Glucose 101 H
Calcium 10.0
Vital Signs:
Vital Signs
Temp Pulse Resp BP Pulse Ox
98.5 F 86 16 147/71 95
09/21/24 11:13 09/21/24 11:13 09/21/24 11:13 09/21/24 11:13 09/21/24 11:13
I&O
09/20/24 09/21/24 09/22/24
06:59 06:59 06:59
Intake Total 1220 / 1220 960 / 960
Output Total 1600 / 1600 1000 / 1000
Balance -380 / -380 -40 / -40
[2024-09-21] MEDS: KCL 40 MEQ PO (12:48)
[2024-09-21] MEDS: DAKIN'S SOLUTION 0.125% 1/4 STRENGTH 1 ML TOPICAL (12:49)
--- NOTE | 2024-09-21 14:39 | PN.CDI ---
CDI
- -
CDI:
Physician Documentation Request
Admit Date: 09/19/24 02:21
Dear Doctor Cynthia,
09/21 Hospitalist PN: 'venous insufficiency with LE wounds and mild surrounding cellulitis #Leukocytosis'
Laboratory Tests
09/19/24 09/20/24
04:06 07:10
WBC 14.1 H 15.7 H
09/20/24
06:54 09/20/24
15:07 09/20/24
19:51
Pulse 100 103 99
09/19/24
00:15 09/19/24
01:45 09/19/24
03:44
Resp Rate 35 33 24
Please clarify which of the following most accurately describes the status of the patient's infection:
Sepsis
- Systemic manifestations of infection, with 2 or more SIRS criteria which include:
- Fever >100.9 degrees F or hypothermia < 96.8 degrees F
- Leukocytosis - WBC > 12,000 or leukopenia - WBC < 4,000 or > 10% bands
- Tachycardia > 90 beats per minute
- Tachypnea - RR > 20 breaths per minute or PaCO2 , 32mmHg
Source: Merck Manual 2012
Localized Infection Only, Without Systemic Illness
- indicate the site/source, such as UTI, pneumonia etc.
Other
Use of terms such as suspected, likely, concern for, or probable (associated with a specific diagnosis that is being evaluated, monitored, or treated as if it exists) are acceptable and can be coded in the inpatient setting, when documented at the
time of discharge.
Thank you,
Georgia Mclain RN, BSN
CDI Specialist
Available via [place] text
Please use your independent medical judgment in providing your response.
[2024-09-21 15:51] LABS: Thyroglobulin Antibodies <1.5 IU/mL (0.0-4.0)
[2024-09-21 15:59] VITALS: BP 136/64
[2024-09-21 16:13] LABS: Glucose - Point of Care 155 mg/dl (70-99)
[2024-09-21] MEDS: ZETIA 10 MG PO (17:19)
[2024-09-21] MEDS: TRICOR 48 MG PO (17:19)
[2024-09-21] MEDS: LIPITOR 20 MG PO (17:19)
[2024-09-21 19:11] VITALS: BP 162/86
[2024-09-21 21:14] LABS: Glucose - Point of Care 155 mg/dl (70-99)
[2024-09-21] MEDS: TYLENOL 650 MG PO (22:24)
[2024-09-21 23:09] VITALS: BP 134/74
[2024-09-22 03:17] VITALS: BP 141/80
[2024-09-22] MEDS: ANCEF 5 IV ×3 (04:46→22:03)
[2024-09-22] MEDS: DAKIN'S SOLUTION 0.125% 1/4 STRENGTH 1 ML TOPICAL (04:46)
[2024-09-22 06:00] VITALS: BMI 28.5
[2024-09-22] MEDS: TYLENOL 650 MG PO ×2 (06:19→22:02)
[2024-09-22 07:43] LABS: Hematocrit 44.1 % (37.0-47.0); Hemoglobin 16.0 g/dL (12.0-16.0); Mean Corp Hgb Conc. 36.3 g/dL (33.0-37.0); Mean Corpuscular Volume 94.4 fL (81.0-99.0); Nucleated Red Blood Cells % 0 %; Platelet Count 189 10^3/uL (130-400); Red Cell Dist. Width 13.4 % (11.5-14.5)
[2024-09-22 07:52] LABS: Glucose - Point of Care 151 mg/dl (70-99)
[2024-09-22 08:10] VITALS: BP 173/96
[2024-09-22 08:17] LABS: Blood Urea Nitrogen 52 mg/dl (7-17); Calcium 9.9 mg/dl (8.4-10.2); Carbon Dioxide 28 mmol/L (22-30); Chloride 98 mmol/L (98-107); Estimated Creatinine Clearance 29 ml/min; Glucose 147 mg/dl (70-99); Potassium 3.6 mmol/L (3.5-5.1); Sodium 137 mmol/L (135-145); eGFR 34.15
[2024-09-22 09:00] VITALS: BP 142/71; PULSE 110; O2SAT 92
[2024-09-22] MEDS: LOPRESSOR 100 MG PO ×2 (09:01→22:02)
[2024-09-22] MEDS: ASPIR LOW (ENTERIC COATED) 81 MG PO (09:01)
[2024-09-22 09:03] VITALS: BP 142/71; O2SAT 95
[2024-09-22 11:35] LABS: Glucose - Point of Care 169 mg/dl (70-99)
--- NOTE | 2024-09-22 11:50 | W.PN.HOSP.TC ---
Today's Communication/Plan
-
Continue to monitor creatinine
Refusing heparin subcu
Transfer to [facility]
Arteriogram Friday tentatively
Assessment / Plan
Assessment / Plan
84yo F with PMHX of chronic ambulatory deficiency, CAD HLD, DM came with inability to carry weight on her legs started after fall 5 days before admission, when her L leg gave out. After that she also experienced some sacral tenderness as she fell
down on her buttocks. XR in [facility] reportedly neg for Fx as patient was evaluated there after the fall. No saddle paresthesia, urianry or stool incontinence or retention reported, No LE paresthesias. Patient also had a long Hx of
walking with walker with intermittent b/l LE stiffness. ALso LE wounds with leukocytosis and swelling while patient stopped her Lasix
A/P:
#PAD
# Sepsis likely secondary to venous insufficiency with LE wounds and mild surrounding cellulitis-poa
#Leukocytosis
wound care while inpatient
no respiratory symptoms, chest XR without pneumonia, no UTI sings on UA
Ancef
Significantly abnormal ABIs
Vascular surgery planning for arteriogram on Friday.
#Ambulatory dysfunction s/p fall on chronic ambulatory deficiency with LE stiffness possibly due to PAD
No LE pain concerning for Fx
PT/OT
Neuro eval with recent Hx of LLE sudden weakness causing fall-myasthenia gravis lab negative
cortisol wnl
Neuro recs noted
# Mild acute on chronic HFpEF secondary to noncompliance with medication
#Atrial Fibrillation - Unknown Type
Stable. Rate controlled on current regimen.
Continue Toprol with holding parameters.
Patient has declined OAC, Watchman, etc in the past despite risk of embolic phenomena / stroke / etc.
Patient stopped taking her q48h lasix few weeks ago
LE edema on admission
Echo with EF of 55%. Normal left ventricular chamber size. Normal left ventricular systolic function. Normal regional wall motion. Mild concentric LVH. Mild tricuspid regurgitation. PASP of 30 to 35 mmHg.
telemetry
Trops WNL
#Hyperthyroidism, subclinical with Hx of graves disease
Dr. Ames-Discussed suppressed TSH with Endo: recheck TFT as an outpatient probably no later than 4 weeks. With currently no overt signs of hyperthyroidism - no direct indication for methimazole
# Mild EMILIE on CKD stage 3b versus CKD stage IIIb
follow Cr
Creatinine at 1.5
DC IV diuretics
Unknown baseline. Obtain records from outside hospital. Patient and daughter does not know baseline creatinine.
#Mild hypercalcemia
check PTH and vit D 0.25
no overt signs of malignancy on chest XR
#DM type 2 with neuropathy
AccuCheck, DM diet, Insulin SS
hold glimepiride, check HgbA1c at 6.9
#CAD
#Essential HTN
#HLD
cont home meds, adjust fenofibrate according to kidney function
DVT ppx hep. Patient continues to refuse heparin even with counseling to prevent clots.
Full code
PT/OT SNF.
Discussed with patient daughter at bedside in detail on 09/21/2024
Anticipated Discharge: > 48 hours
Subjective/Interval History
-
Date of Service: September 22, 2024
Resting in chair
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
Objective Data
-
Labs:
Laboratory Results
09/22/24
07:17
WBC 13.5 H
Hgb 16.0
Hct 44.1
Plt Count 189
Sodium 137
Potassium 3.6
Chloride 98
Carbon Dioxide 28
BUN 52 H
Creatinine 1.5 H
Glucose 147 H
Calcium 9.9
Vital Signs:
Vital Signs
Temp Pulse Resp BP Pulse Ox
97.7 F 93 18 173/96 96
09/22/24 08:10 09/22/24 09:01 09/22/24 08:10 09/22/24 09:01 09/22/24 08:10
I&O
09/21/24 09/22/24 09/23/24
06:59 06:59 06:59
Intake Total 960 / 960 1160 / 1160
Output Total 1000 / 1000
Balance -40 / -40 1160 / 1160
Physical Exam
-
General: No Apparent Distress
HEENT: Normocephalic
Cardiac: Regular Rhythm and S1/S2
GI: Soft, Nontender and Nondistended
Musculoskeletal: No Clubbing, No Cyanosis and Other (Right medial lower leg wound noted. Bilateral lower extremity discoloration noted)
Neuro: Awake, Alert, Oriented, AO x 3 and No Motor Deficits
Psych: Calm
[2024-09-22 15:49] VITALS: BP 165/83
[2024-09-22 16:32] LABS: Glucose - Point of Care 129 mg/dl (70-99)
[2024-09-22] MEDS: TRICOR 48 MG PO (17:11)
[2024-09-22] MEDS: ZETIA 10 MG PO (17:11)
[2024-09-22] MEDS: LIPITOR 20 MG PO (17:11)
[2024-09-22 21:42] LABS: Glucose - Point of Care 141 mg/dl (70-99)
[2024-09-22 23:21] VITALS: BP 138/78
[2024-09-23] MEDS: ANCEF 5 IV ×3 (04:40→19:46)
[2024-09-23 06:00] VITALS: BMI 28.5
[2024-09-23 08:18] LABS: Blood Urea Nitrogen 58 mg/dl (7-17); Calcium 10.0 mg/dl (8.4-10.2); Carbon Dioxide 31 mmol/L (22-30); Chloride 99 mmol/L (98-107); Estimated Creatinine Clearance 27 ml/min; Glucose 136 mg/dl (70-99); Potassium 3.5 mmol/L (3.5-5.1); Sodium 139 mmol/L (135-145); eGFR 31.61
[2024-09-23 08:18] LABS: Glucose - Point of Care 131 mg/dl (70-99)
[2024-09-23 08:32] LABS: Hematocrit 43.9 % (37.0-47.0); Hemoglobin 14.3 g/dL (12.0-16.0); Mean Corp Hgb Conc. 32.6 g/dL (33.0-37.0); Mean Corpuscular Volume 94.6 fL (81.0-99.0); Platelet Count 206 10^3/uL (130-400); Red Cell Dist. Width 13.5 % (11.5-14.5)
[2024-09-23 08:43] VITALS: BP 157/92; BP 159/98; BP 162/81; PULSE 103; PULSE 112; PULSE 92
[2024-09-23] MEDS: LOPRESSOR 100 MG PO ×2 (09:29→19:47)
[2024-09-23] MEDS: ASPIR LOW (ENTERIC COATED) 81 MG PO (09:29)
--- NOTE | 2024-09-23 09:37 | CM ---
Addendum entered by Lani Downs RN 09/23/24 16:48:
Received call from patient's daughter Gissel; family has decided that they would like [facility]. Dtr asked repetitively when patient will be ready for d/c- explained again that MD will indicate when medically ready and we will know more tomorrow
after patient's procedure.
Received call from Gene, patient's son; reiterated same information as conveyed to daughter. Answered son's questions about SNF costs. Son asked repetitively when patient will be ready for d/c- explained that MD will indicate when medically ready
and we will know more tomorrow after patient's procedure.
Plan [facility] when medically ready.
Original Note:
Patient with Dx sepsis, cellulitis LE, HF, EMILIE. Plan lower extremity arteriogram and possible endovascular intervention. Room air. Receiving IV Abx. Seen by wound care nurse. PT/OT recommend skilled rehab.
Messages with Dr Marie; no need for emt intermediate IV Abx.
SNF referrals reviewed: accepted by [facility], [facility]. [facility] declined. No response [facility] or [facility].
Spoke with patient's daughter Gissel; reviewed current SNF options as per prior referrals . Daughter says patient will not want [facility]. She inquired about [facility]- explained highly unlikely they will accept as this is a closed community
for their independent living patients. Daughter inquired about alternate SNFs - suggested she also consider [facility] and [facility] and provided [facility] ratings. Reviewed patient's current mobility as per PT notes. Daughter
concerned that patient receive adequate rehab at the SNF, not just 15 minutes/day. Suggested she tour some SNFs - daughter states she doesn't have the time due to working. Offered to have her speak with Adms Coor at the SNF she is considering.
She will discuss with her brother. Daughter aware d/c skilled needs are rehab and also wound care. Daughter aware timing of d/c unknown at this time.
Plan follow up with daughter for final SNF preferences.
[2024-09-23 09:48] LABS: Nucleated Red Blood Cells % 0 %
[2024-09-23] MEDS: DAKIN'S SOLUTION 0.125% 1/4 STRENGTH 473 ML TOPICAL (10:07)
--- NOTE | 2024-09-23 11:21 | W.PN.HOSP.TC ---
Today's Communication/Plan
-
Check urine studies
Bladder scan protocol
Trend creatinine
May need IV fluids
Assessment / Plan
Assessment / Plan
84yo F with PMHX of chronic ambulatory deficiency, CAD HLD, DM came with inability to carry weight on her legs started after fall 5 days before admission, when her L leg gave out. After that she also experienced some sacral tenderness as she fell
down on her buttocks. XR in [facility] reportedly neg for Fx as patient was evaluated there after the fall. No saddle paresthesia, urianry or stool incontinence or retention reported, No LE paresthesias. Patient also had a long Hx of
walking with walker with intermittent b/l LE stiffness. ALso LE wounds with leukocytosis and swelling while patient stopped her Lasix
A/P:
#PAD
# Sepsis likely secondary to venous insufficiency with LE wounds and mild surrounding cellulitis-poa
#Leukocytosis
wound care while inpatient
no respiratory symptoms, chest XR without pneumonia, no UTI sings on UA
Ancef
Significantly abnormal ABIs
Vascular surgery planning for arteriogram on Friday.
# Mild EMILIE on CKD stage 3b versus CKD stage IIIb
follow Cr
Creatinine at 1.6
DC IV diuretics
Unknown baseline. Obtain records from outside hospital. Patient and daughter does not know baseline creatinine.
still awaiting records.
Check urine lytes and probably will need to be started on IVF.
bladder scan protocol
#Ambulatory dysfunction s/p fall on chronic ambulatory deficiency with LE stiffness possibly due to PAD
No LE pain concerning for Fx
PT/OT
Neuro eval with recent Hx of LLE sudden weakness causing fall-myasthenia gravis lab negative
cortisol wnl
Neuro recs noted
# Mild acute on chronic HFpEF secondary to noncompliance with medication
#Atrial Fibrillation - Unknown Type
Stable. Rate controlled on current regimen.
Continue Toprol with holding parameters.
Patient has declined OAC, Watchman, etc in the past despite risk of embolic phenomena / stroke / etc.
Patient stopped taking her q48h lasix few weeks ago
LE edema on admission
Echo with EF of 55%. Normal left ventricular chamber size. Normal left ventricular systolic function. Normal regional wall motion. Mild concentric LVH. Mild tricuspid regurgitation. PASP of 30 to 35 mmHg.
telemetry
Trops WNL
#Hyperthyroidism, subclinical with Hx of graves disease
Dr. Ames-Discussed suppressed TSH with Endo: recheck TFT as an outpatient probably no later than 4 weeks. With currently no overt signs of hyperthyroidism - no direct indication for methimazole
#Mild hypercalcemia
check PTH and vit D 0.25
no overt signs of malignancy on chest XR
#DM type 2 with neuropathy
AccuCheck, DM diet, Insulin SS
hold glimepiride, check HgbA1c at 6.9
#CAD
#Essential HTN
#HLD
cont home meds, adjust fenofibrate according to kidney function
DVT ppx hep. Patient continues to refuse heparin even with counseling to prevent clots.
Full code
PT/OT SNF.
Anticipated Discharge: > 48 hours
Subjective/Interval History
-
Date of Service: September 23, 2024
No overnight events
Denies leg pain
Objective Data
-
Labs:
Laboratory Results
09/23/24
07:12
WBC 15.7 H
Hgb 14.3
Hct 43.9
Plt Count 206
Sodium 139
Potassium 3.5
Chloride 99
Carbon Dioxide 31 H
BUN 58 H
Creatinine 1.6 H
Glucose 136 H
Calcium 10.0
Vital Signs:
Vital Signs
Temp Pulse Resp BP Pulse Ox
97.8 F 92 18 162/81 94
09/23/24 08:43 09/23/24 08:43 09/23/24 08:43 09/23/24 08:43 09/23/24 10:16
I&O
09/22/24 09/23/24 09/24/24
06:59 06:59 06:59
Intake Total 1160 / 1160 960 / 960
Balance 1160 / 1160 960 / 960
Physical Exam
-
General: No Apparent Distress
HEENT: Normocephalic
Cardiac: Regular Rhythm and S1/S2
GI: Soft, Nontender and Nondistended
Musculoskeletal: No Clubbing, No Cyanosis and Other (Right medial lower leg wound noted. Bilateral lower extremity discoloration noted)
Neuro: Awake, Alert, Oriented, AO x 3 and No Motor Deficits
Psych: Calm
[2024-09-23] MEDS: NSS 1000 IV (11:57)
[2024-09-23 12:03] LABS: Glucose - Point of Care 151 mg/dl (70-99)
[2024-09-23 15:21] VITALS: BP 138/62
[2024-09-23 16:43] LABS: Glucose - Point of Care 186 mg/dl (70-99)
[2024-09-23] MEDS: ZETIA 10 MG PO (17:21)
[2024-09-23] MEDS: LIPITOR 20 MG PO (17:21)
[2024-09-23] MEDS: TRICOR 48 MG PO (17:21)
[2024-09-23 21:09] LABS: Glucose - Point of Care 164 mg/dl (70-99)
[2024-09-23 23:41] VITALS: BP 159/90
[2024-09-24] VITALS (21 sets, daily range): BP systolic 124–172; BP diastolic 59–83; BMI 29.0
[2024-09-24] MEDS: TYLENOL 650 MG PO ×3 (01:17→17:05)
[2024-09-24] MEDS: NSS 1000 IV ×2 (01:17→17:04)
[2024-09-24] MEDS: ANCEF 5 IV ×3 (04:57→20:04)
[2024-09-24 06:35] LABS: Glucose - Point of Care 103 mg/dl (70-99)
[2024-09-24 07:30] LABS: Glucose - Point of Care 111 mg/dl (70-99)
--- NOTE | 2024-09-24 07:34 | W.SUR.PREOP ---
Pre-Operative Surgical Note
-
I have examined this patient prior to the performance of the scheduled procedure.
The patient's condition is unchanged from the time of the current History and
Physical and the patient is able to undergo the scheduled procedure.
[2024-09-24] MEDS: DAKIN'S SOLUTION 0.125% 1/4 STRENGTH 473 ML TOPICAL (08:07)
[2024-09-24] MEDS: ASPIR LOW (ENTERIC COATED) 81 MG PO (08:07)
[2024-09-24] MEDS: LOPRESSOR 100 MG PO ×2 (08:08→20:04)
[2024-09-24 08:28] LABS: Hematocrit 41.6 % (37.0-47.0); Hemoglobin 13.4 g/dL (12.0-16.0); Mean Corp Hgb Conc. 32.2 g/dL (33.0-37.0); Mean Corpuscular Volume 95.6 fL (81.0-99.0); Nucleated Red Blood Cells % 0 %; Platelet Count 163 10^3/uL (130-400); Red Cell Dist. Width 13.5 % (11.5-14.5)
[2024-09-24 08:43] LABS: Blood Urea Nitrogen 49 mg/dl (7-17); Calcium 9.5 mg/dl (8.4-10.2); Carbon Dioxide 30 mmol/L (22-30); Chloride 103 mmol/L (98-107); Estimated Creatinine Clearance 36 ml/min; Glucose 111 mg/dl (70-99); Potassium 3.3 mmol/L (3.5-5.1); Sodium 139 mmol/L (135-145); eGFR 44.64
--- NOTE | 2024-09-24 10:10 | PTCARENOTE ---
RECEIVED PT FROM . PT AAOX3, +2 LT DP, DOPPLER RT DP. RT LEG WITH KERLEX DSG AROUND DRUMMOND AND LT DRUMMOND WITH DUODERM. ANESTHESIA NOTIFIED
[2024-09-24 11:03] LABS: Glucose - Point of Care 123 mg/dl (70-99)
--- NOTE | 2024-09-24 12:06 | W.PN.HOSP.TC ---
Today's Communication/Plan
-
pain control
IVF overnight
replete kcl
on plavix in addition to asa
Assessment / Plan
Assessment / Plan
84yo F with PMHX of chronic ambulatory deficiency, CAD HLD, DM came with inability to carry weight on her legs started after fall 5 days before admission, when her L leg gave out. After that she also experienced some sacral tenderness as she fell
down on her buttocks. XR in [facility] reportedly neg for Fx as patient was evaluated there after the fall. No saddle paresthesia, urianry or stool incontinence or retention reported, No LE paresthesias. Patient also had a long Hx of
walking with walker with intermittent b/l LE stiffness. ALso LE wounds with leukocytosis and swelling while patient stopped her Lasix
A/P:
#PAD
# Sepsis likely secondary to venous insufficiency with LE wounds and mild surrounding cellulitis-poa
#Leukocytosis
wound care while inpatient
no respiratory symptoms, chest XR without pneumonia, no UTI sings on UA
Ancef
Significantly abnormal ABIs
s/p RLE angiogram with Stenting of popliteal artery and TP trunk with use of javelin. Skin/wound punch biopsy performed.
started on plavix s/p loading dose per vascular
cont asa/statin.
# Mild EMILIE on CKD stage 3b versus CKD stage IIIb
follow Cr
Creatinine improved to 1.2.
DC IV diuretics
Unknown baseline. Obtain records from outside hospital. Patient and daughter does not know baseline creatinine.
still awaiting records.
FENA with pre-renal.
bladder scan protocol
#Ambulatory dysfunction s/p fall on chronic ambulatory deficiency with LE stiffness possibly due to PAD
No LE pain concerning for Fx
PT/OT
Neuro eval with recent Hx of LLE sudden weakness causing fall-myasthenia gravis lab negative
cortisol wnl
Neuro recs noted
# Mild acute on chronic HFpEF secondary to noncompliance with medication
#Atrial Fibrillation - Unknown Type
Stable. Rate controlled on current regimen.
Continue Toprol with holding parameters.
Patient has declined OAC, Watchman, etc in the past despite risk of embolic phenomena / stroke / etc.
Patient stopped taking her q48h lasix few weeks ago
LE edema on admission
Echo with EF of 55%. Normal left ventricular chamber size. Normal left ventricular systolic function. Normal regional wall motion. Mild concentric LVH. Mild tricuspid regurgitation. PASP of 30 to 35 mmHg.
telemetry
Trops WNL
#Hyperthyroidism, subclinical with Hx of graves disease
Dr. Ames-Discussed suppressed TSH with Endo: recheck TFT as an outpatient probably no later than 4 weeks. With currently no overt signs of hyperthyroidism - no direct indication for methimazole
#Hypokalemia
replete/monitor
#Mild hypercalcemia
check PTH and vit D 0.25
no overt signs of malignancy on chest XR
#DM type 2 with neuropathy
AccuCheck, DM diet, Insulin SS
hold glimepiride, check HgbA1c at 6.9
#CAD
#Essential HTN
#HLD
cont home meds, adjust fenofibrate according to kidney function
DVT ppx hep. Patient continues to refuse heparin even with counseling to prevent clots.
Full code
PT/OT SNF.
d/w with vascular surgery
Anticipated Discharge: > 48 hours
Subjective/Interval History
-
Date of Service: September 24, 2024
seen post op in PACU
awake
states of some pain
Objective Data
-
Labs:
Laboratory Results
09/24/24
06:55
WBC 10.7
Hgb 13.4
Hct 41.6
Plt Count 163 D
Sodium 139
Potassium 3.3 L
Chloride 103
Carbon Dioxide 30
BUN 49 H
Creatinine 1.2 H
Glucose 111 H
Calcium 9.5
Vital Signs:
Vital Signs
Temp Pulse Resp BP Pulse Ox
97.1 F 80 24 172/81 95
09/24/24 10:20 09/24/24 10:20 09/24/24 10:20 09/24/24 10:20 09/24/24 10:20
I&O
09/23/24 09/24/24 09/25/24
06:59 06:59 06:59
Intake Total 960 / 960 1170 / 1170
Balance 960 / 960 1170 / 1170
Physical Exam
-
General: No Apparent Distress
HEENT: Normocephalic, Atraumatic and Moist Mucous Membranes
Cardiac: Regular Rhythm and S1/S2
GI: Soft, Nontender and Nondistended
Musculoskeletal: No Clubbing, No Cyanosis and Other (Right medial lower leg wound noted. Bilateral lower extremity discoloration noted)
Neuro: Awake, Alert, Oriented, AO x 3 and No Motor Deficits
Psych: Calm
[2024-09-24 12:51] LABS: ACT-LR - POC 208 Seconds (116-155)
--- NOTE | 2024-09-24 14:05 | W.IMMPOSTOP ---
Surgical Immed Post Op Note
-
Primary Surgeon: Alessio Carey III, MD
Assisting Surgeon: Dom Waterman MD
Pre-op Diagnosis: Chronic limb-threatening ischemia
Post-op Diagnosis: Chronic limb-threatening ischemia
Procedure Performed: RLE angiogram, stent + javelin in popliteal artery and TP trunk. RLE wound punch biopsy
Anesthesia Type: MAC/local
Specimen / Cultures: None
Estimated Blood Loss: 50 cc
Complications: None
Operative Findings: RLE angiogram with stenosis of popliteal artery and TP trunk. Stenting of popliteal artery and TP trunk with use of javelin. Skin/wound punch biopsy performed.
[2024-09-24 14:27] LABS: Glucose - Point of Care 187 mg/dl (70-99)
--- NOTE | 2024-09-24 14:30 | OR.RPT ---
Operative Report
Operative Report
Date of Operation: 09/24/2024
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
Procedure:
1. Intravascular lithotripsy to right tibioperoneal trunk (Shockwave Javelin)
2. Intravascular lithotripsy to right popliteal artery (Shockwave Javelin and 6 mm x 80 mm E8 Shockwave)
3. Balloon angioplasty and stenting of right popliteal artery (overlapping 6 mm x 120 mm Supera and 6 mm x 100 mm Supera)
4. Balloon angioplasty and drug-eluting bioabsorbable scaffold stent placement to right tibioperoneal trunk (3.5 mm x 38 mm Esquivel Esprit)
5. Diagnostic aortobiiliac arteriogram
6. Diagnostic right lower extremity arteriogram
7. Ultrasound-guided percutaneous access to the left common femoral artery
8. Punch biopsy of right medial ankle wound
Surgeon: Alessio Carey III, MD
Canned Food Reconditioning Inspector: Dom Waterman MD PGY1
Anesthesia: Sedation with local
Fluoroscopy:
61.2 min
184 mGy
53.15 gy.cm2
Complications: None
Estimated Blood Loss: 50 cc
History and Indications for Procedure: 84-year-old female with nonhealing right medial ankle wound. She was taken to the operating room for an arteriogram and possible endovascular intervention. She has a history of skin cancer in the region of
the ankle wound and therefore we recommended punch biopsies to be performed.
Procedure in Detail: Vanessa Kennedy was correctly identified and placed supine on the operating table. After adequate induction of anesthesia the bilateral groins were prepped and draped in the usual sterile fashion. A timeout was performed with
the nursing and anesthesia staff confirming the patient's identity as well as the nature and laterality of the procedure.
The left common femoral artery was identified under ultrasound guidance. The artery was patent. The superior and inferior aspects of the femoral head were identified with radiographic guidance and marked at the skin level. The proposed puncture site
was infiltrated with local anesthesia. Under ultrasound guidance we accessed the left common femoral artery with a micropuncture needle and upsized to a 5 Fr sheath over a [employer] wire. The wire and a Shepherds hook flush catheter were advanced into
the distal abdominal aorta and a diagnostic aorto-biiliac arteriogram was performed:
AORTO-ILIAC ARTERIOGRAM:
Aorta: Heavily calcified. Patent with no significant stenosis identified
Right common iliac artery: Calcified. Patent with no significant stenosis identified
Right external iliac artery: Patent with no significant stenosis identified
Left common iliac artery: Calcified. Patent with no significant stenosis identified
Left external iliac artery: Patent with no significant stenosis identified
Under roadmap guidance using a Glidewire and the Shepherds hook catheter we selected the right common iliac artery and then the external iliac artery. A catheter was tracked up and over the aortic bifurcation and placed in the distal external iliac
artery. A diagnostic right lower extremity arteriogram was then performed which demonstrated the following:
RIGHT LOWER EXTREMITY:
Common femoral artery: Patent with no significant stenosis identified
Profunda femoral artery: Patent with no significant stenosis identified
Superficial femoral artery: Heavily calcified throughout. No significant stenosis identified
Popliteal artery: Heavily calcified. High-grade stenosis identified in the above-knee popliteal artery, behind the knee popliteal artery. Below the knee popliteal artery patent with no significant stenosis identified
Anterior tibial artery: Patent. Calcified plaque at the origin and extending into the proximal artery.
Tibioperoneal trunk: High-grade calcified stenosis at the origin of the TP trunk and distal TP trunk
Peroneal artery: Patent
Posterior tibial artery: Patent.
ENDOVASCULAR INTERVENTION: Systemic heparin was administered. Exchanged out for a 6 Fr 45 cm sheath over a [employer] wire. Selected the superficial femoral artery under roadmap guidance. The calcified popliteal artery stenosis was crossed with a
Quickcross and Glidewire. The wire and catheter were advanced into the below the knee popliteal artery and subtraction angio confirmed proper position in the true lumen. We were able to cross the high-grade calcified stenosis in the tibioperoneal
trunk with the quick cross and Glidewire. 0.014 wire was then advanced into the peroneal artery outflow.
Due to the heavily calcified nature of the popliteal artery and tibioperoneal trunk disease and in an effort to successfully cross the lesion, modify the calcium and achieve luminal gain with endovascular intervention I elected to proceed with
intravascular lithotripsy with a Shockwave Javelin catheter. The Javelin catheter was brought into position under radiographic guidance over the 0.014 wire. The Javelin catheter was advanced through the high-grade popliteal artery stenosis and then
across the tibioperoneal trunk stenoses while simultaneously delivering lithotripsy pulses. 120 pulses were delivered. Subsequent arteriogram demonstrated improvement in the tibioperoneal trunk stenosis and less so in the popliteal artery stenosis.
Due to the heavily calcified nature of the popliteal artery disease along with residual stenosis and in an effort to modify the calcium to achieve maximum luminal gain with endovascular intervention I elected to proceed with intravascular
lithotripsy. A 6 mm x 80 mm Shockwave balloon was placed across the stenosis under roadmap guidance. Alternating rounds of lithotripsy pulse delivery at sub-nominal pressure and angioplasty at nominal pressure was performed across the popliteal
artery stenosis. In between rounds of pulse delivery and angioplasty the balloon was deflated and repositioned under roadmap guidance. All 400 pulses were delivered. Subsequent arteriogram demonstrated significant improvement compared to
pretreatment with IVL however areas of stenosis remained. I then treated the popliteal artery with overlapping Supera stents. The first stent was a 6 mm x 120 mm Supera. This was brought into the desired location under roadmap guidance and
deployed. I then extended this proximally, overlapping slightly with the first stent, using a 6 mm x 100 mm Supera. The stents were then profiled with a 6 mm angioplasty balloon. Subsequent arteriogram demonstrated an excellent technical result
with widely patent stents and no significant residual stenosis identified.
I then focused my attention on treating the tibioperoneal trunk disease. Under roadmap guidance I positioned a 3.5 mm x 40 mm angioplasty balloon across the tibioperoneal trunk disease that had been treated with lithotripsy. The balloon was
inflated to nominal pressure and held in place for 3-minute inflation. Subsequent arteriogram demonstrated an improved result but residual stenosis remained. I then brought into position a 3.5 mm x 38 mm Esquivel Esprit bioabsorbable drug-eluting
scaffold. This was positioned in the desired location under roadmap guidance and magnification view across the tibioperoneal trunk disease. This was deployed in the desired location. Subsequent arteriogram demonstrated an excellent technical
result. There was some sluggish flow in the posterior tibial artery on subsequent arteriogram. Nitroglycerin was injected into the posterior tibial artery to combat spasm. The posterior tibial artery was then treated with a long 2.5 mm x 200 mm
angioplasty balloon at nominal pressure with a 3-minute inflation.
COMPLETION ARTERIOGRAM: Excellent technical result. Patent popliteal artery stents. Patent tibioperoneal trunk with no significant residual stenosis. Brisk three-vessel tibial artery outflow. Flow to the wound was identified through the
posterior tibial artery.
Satisfied with this result we concluded the endovascular portion of the procedure. The sheath tip was pulled back into the left external iliac artery. Protamine was administered.
The right medial ankle wound was then prepped with Betadine and draped in the usual sterile fashion. 2 separate punch biopsies were performed on the wound. The first was in the central location and the second was on the periphery adjacent to more
normal-appearing skin. These were sent to pathology individually. Hemostasis was achieved in the wound bed with direct manual pressure. The wound was then redressed with sterile dressings.
The sheath was then pulled and direct manual pressure was held over the puncture site until hemostasis was achieved. A sterile dressing was applied.
The patient tolerated the procedure well and was taken to the recovery area in stable condition.
Attestation: I was present and responsible for the entire procedure.
Signed:
Alessio Carey III, MD
Vascular Surgery
[facility]
--- NOTE | 2024-09-24 16:20 | PTCARENOTE ---
Pt returned from engineering lab technician/PACU s/p angiogram/angioplasty/stents via stretcher, accompanied by EMBEDDED SYSTEMS DESIGNER. Pt drowsy but arousable; transferred to bed with assist x4; pt on bedrest with legs straight x 6 hrs. VSS. Lt groin site with dsg D/i;
surrounding ecchymosis, no bleeding/drainage noted. Both feet pink/warm. sensation/movement (+). Pedal and DP pulses palpable bilaterally. On nc 2 lpm- pulse ox 97%, no SOB noted. Rt lower leg dsg/GABY wrap intact. Sacral foam intact over small
stage II Lt sacral wound. IVF's NSS @ 80 ml/hr infusing via Rt forearm site without sx of infiltration. Resting comfortably at present. Will continue to monitor.
[2024-09-24] MEDS: KCL 260 MEQ IV (16:25)
[2024-09-24] MEDS: PLAVIX 300 MG PO (16:25)
[2024-09-24 16:43] LABS: Glucose - Point of Care 188 mg/dl (70-99)
[2024-09-24] MEDS: LIPITOR 20 MG PO (17:05)
[2024-09-24] MEDS: TRICOR 48 MG PO (17:05)
[2024-09-24] MEDS: ZETIA 10 MG PO (17:05)
[2024-09-24 21:08] LABS: Glucose - Point of Care 189 mg/dl (70-99)
[2024-09-25 03:35] VITALS: BP 134/69
[2024-09-25] MEDS: ANCEF 5 IV ×3 (04:10→20:03)
[2024-09-25] MEDS: NSS 1000 IV (05:10)
[2024-09-25 07:45] VITALS: BP 150/78
[2024-09-25 07:47] LABS: Glucose - Point of Care 122 mg/dl (70-99)
[2024-09-25 08:04] LABS: Hematocrit 36.5 % (37.0-47.0); Hemoglobin 11.7 g/dL (12.0-16.0); Mean Corp Hgb Conc. 32.1 g/dL (33.0-37.0); Mean Corpuscular Volume 97.3 fL (81.0-99.0); Nucleated Red Blood Cells % 0 %; Platelet Count 152 10^3/uL (130-400); Red Cell Dist. Width 13.7 % (11.5-14.5)
[2024-09-25 08:20] LABS: Blood Urea Nitrogen 36 mg/dl (7-17); Calcium 9.2 mg/dl (8.4-10.2); Carbon Dioxide 25 mmol/L (22-30); Chloride 109 mmol/L (98-107); Estimated Creatinine Clearance 44 ml/min; Glucose 119 mg/dl (70-99); Potassium 4.0 mmol/L (3.5-5.1); Sodium 139 mmol/L (135-145); eGFR 55.55
[2024-09-25] MEDS: ASPIR LOW (ENTERIC COATED) 81 MG PO (09:00)
[2024-09-25] MEDS: LOPRESSOR 100 MG PO ×2 (09:00→20:03)
[2024-09-25] MEDS: PLAVIX 75 MG PO (09:05)
[2024-09-25] MEDS: DAKIN'S SOLUTION 0.125% 1/4 STRENGTH 10 ML TOPICAL (09:08)
[2024-09-25] MEDS: FLUSH (NSS) 1 FLUSH IV (09:10)
--- NOTE | 2024-09-25 09:20 | W.PN.VS ---
Today's Communication / Plan
-
See plan below for today 09/25/2024.
Assessment/Plan
-
Postoperative day #1 status post extensive endovascular intervention right lower extremity arteries.
� Creatinine improved, okay to stop IV fluid hydration from vascular standpoint, defer to hospitalist group.
� Local wound care continue to calf wound.
� Will sign off. Please call with questions, follow-up in office as scheduled.
-
Total Time Spent with Patient (in minutes): 10
Subjective Data
-
Date of Service: September 25, 2024
Patient is without complaints except she notes some slight increase swelling in both legs.
Objective Data
-
Vital Signs
Temp Pulse Resp BP Pulse Ox
97.5 F 106 20 150/78 94
09/25/24 07:45 09/25/24 09:00 09/25/24 07:45 09/25/24 09:00 09/25/24 07:45
Intake and Output
09/24/24 09/25/24 09/26/24
06:59 06:59 06:59
Intake Total 1170 / 1170 1610 / 1610
Output Total 150 / 150
Balance 1170 / 1170 1460 / 1460
Intake:
Oral fluids 1170 / 1170 720 / 720
IV fluids (Total) 630 / 630
nss 150 / 150
IV piggybacks 260 / 260
Output:
Urine, Voided 150 / 150
Other:
Number of approximated SMALL 1 1
amounts of urine
Number of approximated MODERATE 3 2
amounts of urine
Number of approximated LARGE 5
amounts of urine
Lab Results
09/25/24 06:55
09/25/24 06:55
Calcium 9.2 mg/dl (8.4-10.2) 09/25/24 06:55
Magnesium 1.8 mg/dl (1.6-2.3) 09/20/24 07:10
Total Bilirubin 0.9 mg/dl (0.2-1.3) 09/20/24 07:10
AST 21 U/L (14-36) 09/20/24 07:10
ALT 10 U/L (0-35) 09/20/24 07:10
Alkaline Phosphatase 97 U/L (38-126) 09/20/24 07:10
Total Protein 7.0 g/dl (6.3-8.2) 09/20/24 07:10
Albumin 4.3 g/dl (3.5-5.0) 09/20/24 07:10
Physical Exam
-
Afebrile.
Awake and alert.
Left groin puncture site flat, no hematoma.
Abdomen soft, nondistended, nontender.
Right foot is warm with palpable DP pulse.
Calf wound dressing is clean dry and intact.
--- NOTE | 2024-09-25 09:30 | PTCARENOTE ---
Dr. Parker in to see pt and gave ok to remove GABY wrap that was placed over right lower leg wound post arteriogram/biopsy 09/24/24.
[2024-09-25 11:48] VITALS: BP 140/72
--- NOTE | 2024-09-25 11:50 | W.PN.HOSP.TC ---
Today's Communication/Plan
-
DC fluid
Creatinine stabilized
Out of bed with PT
SNF placement. Case management aware.
Assessment / Plan
Assessment / Plan
84yo F with PMHX of chronic ambulatory deficiency, CAD HLD, DM came with inability to carry weight on her legs started after fall 5 days before admission, when her L leg gave out. After that she also experienced some sacral tenderness as she fell
down on her buttocks. XR in [facility] reportedly neg for Fx as patient was evaluated there after the fall. No saddle paresthesia, urianry or stool incontinence or retention reported, No LE paresthesias. Patient also had a long Hx of
walking with walker with intermittent b/l LE stiffness. ALso LE wounds with leukocytosis and swelling while patient stopped her Lasix
A/P:
#PAD
# Sepsis likely secondary to venous insufficiency with LE wounds and mild surrounding cellulitis-poa
#Leukocytosis
wound care while inpatient
no respiratory symptoms, chest XR without pneumonia, no UTI sings on UA
Ancef
Significantly abnormal ABIs
s/p RLE angiogram with Stenting of popliteal artery and TP trunk with use of javelin. Skin/wound punch biopsy performed.
started on plavix s/p loading dose per vascular
cont asa/statin.
# Mild EMILIE on CKD stage 3b versus CKD stage IIIb
follow Cr
Creatinine improved to 1
DC IV diuretics
Unknown baseline. Obtain records from outside hospital. Patient and daughter does not know baseline creatinine.
still awaiting records.
FENA with pre-renal.
bladder scan protocol
Status post IV fluid resuscitation. Creatinine stabilized. DC further fluids. Continue to monitor creatinine closely.
Can restart Lasix as needed if needed in the next 24 to 48 hours
#Ambulatory dysfunction s/p fall on chronic ambulatory deficiency with LE stiffness possibly due to PAD
No LE pain concerning for Fx
PT/OT
Neuro eval with recent Hx of LLE sudden weakness causing fall-myasthenia gravis lab negative
cortisol wnl
Neuro recs noted
# Mild acute on chronic HFpEF secondary to noncompliance with medication
#Atrial Fibrillation - Unknown Type
Stable. Rate controlled on current regimen.
Continue Toprol with holding parameters.
Patient has declined OAC, Watchman, etc in the past despite risk of embolic phenomena / stroke / etc.
Patient stopped taking her q48h lasix few weeks ago
LE edema on admission
Echo with EF of 55%. Normal left ventricular chamber size. Normal left ventricular systolic function. Normal regional wall motion. Mild concentric LVH. Mild tricuspid regurgitation. PASP of 30 to 35 mmHg.
telemetry
Trops WNL
#Hyperthyroidism, subclinical with Hx of graves disease
Dr. Ames-Discussed suppressed TSH with Endo: recheck TFT as an outpatient probably no later than 4 weeks. With currently no overt signs of hyperthyroidism - no direct indication for methimazole
#Hypokalemia
replete/monitor
#Mild hypercalcemia
check PTH and vit D 0.25
no overt signs of malignancy on chest XR
#DM type 2 with neuropathy
AccuCheck, DM diet, Insulin SS
Restarted glimepiride as even refusing subcu insulin, check HgbA1c at 6.9
#CAD
#Essential HTN
#HLD
cont home meds, adjust fenofibrate according to kidney function
DVT ppx hep. Patient continues to refuse heparin even with counseling to prevent clots.
Full code
PT/OT SNF. CM aware.
Anticipated Discharge: Within 24 hours
Subjective/Interval History
-
Date of Service: September 25, 2024
Patient feeling better
States some mild lower extremity edema
Objective Data
-
Labs:
Laboratory Results
09/25/24
06:55
WBC 10.5
Hgb 11.7 L
Hct 36.5 L
Plt Count 152
Sodium 139
Potassium 4.0
Chloride 109 H
Carbon Dioxide 25
BUN 36 H
Creatinine 1.0
Glucose 119 H
Calcium 9.2
Vital Signs:
Vital Signs
Temp Pulse Resp BP Pulse Ox
97.9 F 88 20 140/72 92
09/25/24 11:48 09/25/24 11:48 09/25/24 11:48 09/25/24 11:48 09/25/24 11:48
I&O
09/24/24 09/25/24 09/26/24
06:59 06:59 06:59
Intake Total 1170 / 1170 1610 / 1610
Output Total 150 / 150
Balance 1170 / 1170 1460 / 1460
Physical Exam
-
General: No Apparent Distress
HEENT: Normocephalic, Atraumatic and Moist Mucous Membranes
Cardiac: Regular Rhythm and S1/S2
GI: Soft, Nontender and Nondistended
Musculoskeletal: No Clubbing, No Cyanosis and Other (Right medial lower leg wound noted. Bilateral lower extremity discoloration noted. Warm to touch bilateral feet.)
Neuro: Awake, Alert, Oriented, AO x 3 and No Motor Deficits
Psych: Calm
[2024-09-25 12:09] LABS: Glucose - Point of Care 159 mg/dl (70-99)
[2024-09-25] MEDS: FLUSH (NSS) 2 FLUSH IV (13:49)
[2024-09-25] MEDS: TYLENOL 650 MG PO (15:37)
[2024-09-25 15:40] VITALS: BP 156/95
--- NOTE | 2024-09-25 15:42 | PTCARENOTE ---
Dressing changes of pt's legs completed which caused some discomfort, administered PRN Tylenol. Checked her vital signs soon after and SpO2 was 88% on RA. RN had pt take some deep breaths, use incentive spirometer, SpO2 up to 90%. She said she is
slightly SOB but not anything new. Lungs are CTA, placed pt on 1L of O2, SpO2 up to 95% on 1L. Dr. Marie aware of above, will monitor.
[2024-09-25 16:40] LABS: Glucose - Point of Care 153 mg/dl (70-99)
[2024-09-25] MEDS: ZETIA 10 MG PO (18:03)
[2024-09-25] MEDS: TRICOR 48 MG PO (18:03)
[2024-09-25] MEDS: LIPITOR 20 MG PO (18:03)
[2024-09-25 19:43] VITALS: BP 150/73
[2024-09-25 21:32] LABS: Glucose - Point of Care 145 mg/dl (70-99)
[2024-09-25 23:09] VITALS: BP 153/84
[2024-09-26] MEDS: ANCEF 5 IV (04:48)
[2024-09-26 07:49] LABS: Glucose - Point of Care 92 mg/dl (70-99)
[2024-09-26] MEDS: PLAVIX 75 MG PO (08:30)
[2024-09-26] MEDS: AMARYL 1 MG PO (08:31)
[2024-09-26] MEDS: ASPIR LOW (ENTERIC COATED) 81 MG PO (08:31)
[2024-09-26] MEDS: LOPRESSOR 100 MG PO ×2 (08:31→19:38)
[2024-09-26] MEDS: DAKIN'S SOLUTION 0.125% 1/4 STRENGTH 10 ML TOPICAL (08:33)
[2024-09-26 08:42] VITALS: BP 152/80
[2024-09-26 11:23] LABS: Blood Urea Nitrogen 33 mg/dl (7-17); Calcium 10.1 mg/dl (8.4-10.2); Carbon Dioxide 30 mmol/L (22-30); Chloride 105 mmol/L (98-107); Estimated Creatinine Clearance 40 ml/min; Glucose 165 mg/dl (70-99); Potassium 4.1 mmol/L (3.5-5.1); Sodium 140 mmol/L (135-145); eGFR 49.55
--- NOTE | 2024-09-26 11:23 | W.PN.HOSP.TC ---
Today's Communication/Plan
-
Trial of IV Lasix
Monitor creatinine
Continue with aspirin and Plavix
start dispo
Assessment / Plan
Assessment / Plan
84yo F with PMHX of chronic ambulatory deficiency, CAD HLD, DM came with inability to carry weight on her legs started after fall 5 days before admission, when her L leg gave out. After that she also experienced some sacral tenderness as she fell
down on her buttocks. XR in [facility] reportedly neg for Fx as patient was evaluated there after the fall. No saddle paresthesia, urianry or stool incontinence or retention reported, No LE paresthesias. Patient also had a long Hx of
walking with walker with intermittent b/l LE stiffness. ALso LE wounds with leukocytosis and swelling while patient stopped her Lasix. Patient underwent recent outpatient JARRED/TBI was found to have a severe peripheral arterial disease. Vascular
surgery was consulted and patient underwent right lower extremity angiogram. s/p RLE angiogram with Stenting of popliteal artery and TP trunk with use of javelin. Skin/wound punch biopsy performed. Postprocedure patient was also started on
Plavix. Patient will be continue aspirin and Plavix. Patient also had mild acute on chronic heart failure exacerbation which improved after aggressive diuresis. Patient also with sepsis on admission and completed course of IV antibiotics. Patient
also had mild EMILIE on CKD. Creatinine down trended after aggressive diuresis. Patient did receive IV fluid rate preoperatively as with CKD to hopefully avoid ATN with IV contrast exposure. Patient was complaining of shortness of breath and
additional dose of IV Lasix was provided 09/26. PT and OT recommending SNF and case management aware.
A/P:
#PAD
# Sepsis likely secondary to venous insufficiency with LE wounds and mild surrounding cellulitis-poa
#Leukocytosis
wound care while inpatient
Ancef completed course
Significantly abnormal ABIs
s/p RLE angiogram with Stenting of popliteal artery and TP trunk with use of javelin. Skin/wound punch biopsy performed.
started on plavix s/p loading dose per vascular
cont asa/statin.
# Mild EMILIE on CKD stage 3b versus CKD stage IIIb
follow Cr
Creatinine improved to 1.1
DC IV diuretics
Unknown baseline. Obtain records from outside hospital. Patient and daughter does not know baseline creatinine.
still awaiting records.
FENA with pre-renal.
bladder scan protocol
Status post IV fluid resuscitation. Creatinine stabilized. DC further fluids. Continue to monitor creatinine closely.
#Ambulatory dysfunction s/p fall on chronic ambulatory deficiency with LE stiffness possibly due to PAD
No LE pain concerning for Fx
PT/OT
Neuro eval with recent Hx of LLE sudden weakness causing fall-myasthenia gravis lab negative
cortisol wnl
Neuro recs noted
# Mild acute on chronic HFpEF secondary to noncompliance with medication
#Atrial Fibrillation - Unknown Type
Stable. Rate controlled on current regimen.
Continue Toprol with holding parameters.
Patient has declined OAC, Watchman, etc in the past despite risk of embolic phenomena / stroke / etc.
Patient stopped taking her q48h lasix few weeks ago
Echo with EF of 55%. Normal left ventricular chamber size. Normal left ventricular systolic function. Normal regional wall motion. Mild concentric LVH. Mild tricuspid regurgitation. PASP of 30 to 35 mmHg.
telemetry
Trops WNL
Mild uptrending weight complaining of shortness of breath. Will give 20 mg IV Lasix.
#Hyperthyroidism, subclinical with Hx of graves disease
Dr. Ames-Discussed suppressed TSH with Endo: recheck TFT as an outpatient probably no later than 4 weeks. With currently no overt signs of hyperthyroidism - no direct indication for methimazole
#Hypokalemia
replete/monitor
#Mild hypercalcemia
check PTH and vit D 0.25
no overt signs of malignancy on chest XR
#DM type 2 with neuropathy
AccuCheck, DM diet, Insulin SS
Restarted glimepiride as even refusing subcu insulin, check HgbA1c at 6.9
#CAD
#Essential HTN
#HLD
cont home meds, adjust fenofibrate according to kidney function
DVT ppx hep. Patient continues to refuse heparin even with counseling to prevent clots.
Full code
PT/OT SNF. CM aware.
Anticipated Discharge: Within 24 hours
Subjective/Interval History
-
Date of Service: September 26, 2024
States of mild shortness of breath
States of pain after wound care dressing yesterday
Objective Data
-
Labs:
Laboratory Results
09/26/24
10:14
Sodium Pending
Potassium Pending
Chloride Pending
Carbon Dioxide Pending
BUN Pending
Creatinine Pending
Glucose Pending
Calcium Pending
Vital Signs:
Vital Signs
Temp Pulse Resp BP Pulse Ox
98.2 F 99 18 152/80 100
09/25/24 23:09 09/26/24 08:42 09/25/24 23:09 09/26/24 08:42 09/25/24 23:09
I&O
09/25/24 09/26/24 09/27/24
06:59 06:59 06:59
Intake Total 1610 / 1610 1080 / 1080
Output Total 150 / 150
Balance 1460 / 1460 1080 / 1080
[2024-09-26 12:03] LABS: Glucose - Point of Care 143 mg/dl (70-99)
[2024-09-26] MEDS: LASIX 20 MG IV (12:23)
[2024-09-26 15:20] VITALS: BP 173/91
[2024-09-26 17:08] VITALS: BP 153/90
[2024-09-26 17:19] LABS: Glucose - Point of Care 159 mg/dl (70-99)
[2024-09-26] MEDS: ZETIA 10 MG PO (17:21)
[2024-09-26] MEDS: LIPITOR 20 MG PO (17:21)
[2024-09-26] MEDS: TRICOR 48 MG PO (17:21)
[2024-09-26 21:50] LABS: Glucose - Point of Care 145 mg/dl (70-99)
[2024-09-26 23:55] VITALS: BP 149/73
[2024-09-27 06:00] VITALS: BMI 29.3
[2024-09-27 07:19] LABS: Glucose - Point of Care 106 mg/dl (70-99)
[2024-09-27 08:05] VITALS: BP 160/91
[2024-09-27 08:32] LABS: Hematocrit 36.9 % (37.0-47.0); Hemoglobin 11.7 g/dL (12.0-16.0); Mean Corp Hgb Conc. 31.7 g/dL (33.0-37.0); Mean Corpuscular Volume 97.9 fL (81.0-99.0); Nucleated Red Blood Cells % 0 %; Platelet Count 154 10^3/uL (130-400); Red Cell Dist. Width 13.5 % (11.5-14.5)
[2024-09-27 09:06] LABS: Blood Urea Nitrogen 33 mg/dl (7-17); Calcium 10.5 mg/dl (8.4-10.2); Carbon Dioxide 30 mmol/L (22-30); Chloride 105 mmol/L (98-107); Estimated Creatinine Clearance 40 ml/min; Glucose 110 mg/dl (70-99); Potassium 3.8 mmol/L (3.5-5.1); Sodium 140 mmol/L (135-145); eGFR 49.55
[2024-09-27] MEDS: LOPRESSOR 100 MG PO (09:23)
[2024-09-27] MEDS: AMARYL 1 MG PO (09:24)
[2024-09-27] MEDS: PLAVIX 75 MG PO (09:24)
[2024-09-27] MEDS: ASPIR LOW (ENTERIC COATED) 81 MG PO (09:24)
[2024-09-27] MEDS: FLUSH (NSS) 1 FLUSH IV (09:25)
[2024-09-27] MEDS: TYLENOL 650 MG PO (09:26)
[2024-09-27] MEDS: DAKIN'S SOLUTION 0.125% 1/4 STRENGTH 10 ML TOPICAL (09:36)
--- NOTE | 2024-09-27 11:16 | CM ---
Chart reviewed. Per hospitalist, patient stable for d/c today
[facility] SNF accepted, confirmed w/ [facility] admissions, bed available today
Met w/ patient bedside to make aware, will call her daughter to update. Also asked CM to give daughter a call as well
IMM verbally reviewed, copy provided, copy on chart
Ambulance transport forms on chart, made aware of transport arrangement
Updated daughter via phone, agreeable to d/c today
[facility]
Report: [phone]

Plan: D/c to [facility] today
[2024-09-27 11:17] LABS: Glucose - Point of Care 194 mg/dl (70-99)
--- NOTE | 2024-09-27 11:42 | W.PN.HOSP.TC ---
Today's Communication/Plan
-
dc
Assessment / Plan
Assessment / Plan
84yo F with PMHX of chronic ambulatory deficiency, CAD HLD, DM came with inability to carry weight on her legs started after fall 5 days before admission, when her L leg gave out. After that she also experienced some sacral tenderness as she fell
down on her buttocks. XR in [facility] reportedly neg for Fx as patient was evaluated there after the fall. No saddle paresthesia, urianry or stool incontinence or retention reported, No LE paresthesias. Patient also had a long Hx of
walking with walker with intermittent b/l LE stiffness. ALso LE wounds with leukocytosis and swelling while patient stopped her Lasix. Patient underwent recent outpatient JARRED/TBI was found to have a severe peripheral arterial disease. Vascular
surgery was consulted and patient underwent right lower extremity angiogram. s/p RLE angiogram with Stenting of popliteal artery and TP trunk with use of javelin. Skin/wound punch biopsy performed. Postprocedure patient was also started on
Plavix. Patient will be continue aspirin and Plavix. Patient also had mild acute on chronic heart failure exacerbation which improved after aggressive diuresis. Patient also with sepsis on admission and completed course of IV antibiotics. Patient
also had mild EMILIE on CKD. Creatinine down trended after aggressive diuresis. Patient did receive IV fluid rate preoperatively as with CKD to hopefully avoid ATN with IV contrast exposure. Patient was complaining of shortness of breath and
additional dose of IV Lasix was provided 09/26. PT and OT recommending SNF and case management aware.
A/P:
#PAD
# Sepsis likely secondary to venous insufficiency with LE wounds and mild surrounding cellulitis-poa
#Leukocytosis
wound care while inpatient
Ancef completed course
Significantly abnormal ABIs
s/p RLE angiogram with Stenting of popliteal artery and TP trunk with use of javelin. Skin/wound punch biopsy performed.
started on plavix s/p loading dose per vascular
cont asa/statin.
# Mild EMILIE on CKD stage 3b versus CKD stage IIIb
follow Cr
Creatinine improved to 1.1
DC IV diuretics
Unknown baseline. Obtain records from outside hospital. Patient and daughter does not know baseline creatinine.
still awaiting records.
FENA with pre-renal.
bladder scan protocol
Status post IV fluid resuscitation. Creatinine stabilized. DC further fluids. Continue to monitor creatinine closely.
#Ambulatory dysfunction s/p fall on chronic ambulatory deficiency with LE stiffness possibly due to PAD
No LE pain concerning for Fx
PT/OT
Neuro eval with recent Hx of LLE sudden weakness causing fall-myasthenia gravis lab negative
cortisol wnl
Neuro recs noted
# Mild acute on chronic HFpEF secondary to noncompliance with medication
#Atrial Fibrillation - Unknown Type
Stable. Rate controlled on current regimen.
Continue Toprol with holding parameters.
Patient has declined OAC, Watchman, etc in the past despite risk of embolic phenomena / stroke / etc.
Patient stopped taking her q48h lasix few weeks ago
Echo with EF of 55%. Normal left ventricular chamber size. Normal left ventricular systolic function. Normal regional wall motion. Mild concentric LVH. Mild tricuspid regurgitation. PASP of 30 to 35 mmHg.
telemetry
Trops WNL
Mild uptrending weight complaining of shortness of breath. Will give 20 mg IV Lasix.
#Hyperthyroidism, subclinical with Hx of graves disease
Dr. Ames-Discussed suppressed TSH with Endo: recheck TFT as an outpatient probably no later than 4 weeks. With currently no overt signs of hyperthyroidism - no direct indication for methimazole
#Hypokalemia
replete/monitor
#Mild hypercalcemia
check PTH and vit D 0.25
no overt signs of malignancy on chest XR
#DM type 2 with neuropathy
AccuCheck, DM diet, Insulin SS
Restarted glimepiride as even refusing subq insulin, check HgbA1c at 6.9
#CAD
#Essential HTN
#HLD
cont home meds, adjust fenofibrate according to kidney function
DVT ppx hep. Patient continues to refuse heparin even with counseling to prevent clots.
Full code
I have spent at least 36min reviewing chart, test results and providing direct patient care
Anticipated Discharge: Today
Subjective/Interval History
-
Date of Service: September 27, 2024
Objective Data
-
Labs:
Laboratory Results
09/27/24
07:49
WBC 11.5 H
Hgb 11.7 L
Hct 36.9 L
Plt Count 154
Sodium 140
Potassium 3.8
Chloride 105
Carbon Dioxide 30
BUN 33 H
Creatinine 1.1 H
Glucose 110 H
Calcium 10.5 H
Vital Signs:
Vital Signs
Temp Pulse Resp BP Pulse Ox
98.1 F 95 16 160/91 100
09/27/24 08:05 09/27/24 09:23 09/27/24 08:05 09/27/24 09:23 09/27/24 08:05
I&O
09/26/24 09/27/24 09/28/24
06:59 06:59 06:59
Intake Total 1080 / 1080 240 / 240
Output Total 250 / 250
Balance 1080 / 1080 -10 / -10
Review of Systems
-
History Source: Patient
All other systems: Reviewed and negative
Physical Exam
-
General: No Apparent Distress
HEENT: Normocephalic
Cardiac: Regular Rhythm
GI: Soft, Nontender and Nondistended
Musculoskeletal: No Clubbing, No Cyanosis and No Edema
Neuro: Awake, Alert, Oriented and AO x 3
Psych: Calm
--- NOTE | 2024-09-27 11:47 | W.DCSUMMARY ---
Discharge Summary
Discharge Data
Date of Admission: 09/19/24
Date of Discharge: 09/27/24
-
Pending Results: No
Hospital Course
84yo F with PMHX of chronic ambulatory deficiency, CAD HLD, DM came with inability to carry weight on her legs started after fall 5 days before admission, when her L leg gave out. After that she also experienced some sacral tenderness as she fell
down on her buttocks. XR in [facility] reportedly neg for Fx as patient was evaluated there after the fall. No saddle paresthesia, urianry or stool incontinence or retention reported, No LE paresthesias. Patient also had a long Hx of
walking with walker with intermittent b/l LE stiffness. ALso LE wounds with leukocytosis and swelling while patient stopped her Lasix. Patient underwent recent outpatient JARRED/TBI was found to have a severe peripheral arterial disease. Vascular
surgery was consulted and patient underwent right lower extremity angiogram. s/p RLE angiogram with Stenting of popliteal artery and TP trunk with use of javelin. Skin/wound punch biopsy performed. Postprocedure patient was also started on
Plavix. Patient will be continue aspirin and Plavix. Patient also had mild acute on chronic heart failure exacerbation which improved after aggressive diuresis. Patient also with sepsis on admission and completed course of IV antibiotics. Patient
also had mild EMILIE on CKD. Creatinine down trended after aggressive diuresis. Patient did receive IV fluid rate preoperatively as with CKD to hopefully avoid ATN with IV contrast exposure. Patient was complaining of shortness of breath and
additional dose of IV Lasix was provided 09/26. PT and OT recommending SNF and case management aware.
I have spent at least 36min reviewing chart, test results and providing direct patient care
Patient was managed for:
#PAD
#Sepsis likely secondary to venous insufficiency with LE wounds and mild surrounding
#Mild EMILIE on CKD stage 3b versus CKD stage IIIb
#Ambulatory dysfunction s/p fall on chronic ambulatory deficiency with LE stiffness possibly
#Mild acute on chronic HFpEF secondary to noncompliance with medication
#Atrial Fibrillation - Unknown Type
#Hyperthyroidism, subclinical with Hx of graves disease
#Hypokalemia
#Mild hypercalcemia
#DM type 2 with neuropathy
#CAD
#Essential HTN
#HLD
Discharge Plan
-
Patient Disposition: Senior Living/SNF
Discharge Diagnosis/Procedures: Sepsis secondary to venous sufficiency and mild cellulitis
Leukocytosis
Mild EMILIE on CKD
Ambulatory dysfunction
Severe peripheral arterial disease status post RLE angiogram
Mild acute on chronic diastolic heart failure exacerbation secondary to noncompliance with medication
Hypokalemia
Condition: Good
Diet: As tolerated
Activity: No strenuous activity
Driving Restrictions: No driving for 48 hours
Blood Work: BMP in 1 week via primary doctor
Thyroid function testing in 4 weeks via primary doctor
Others Tests: Your follow up arterial ultrasound is scheduled on 10/20/2024 @ 2pm here at [facility]
Specialty Instructions: Weigh Daily- Call MD for wt gain/loss 3 lbs overnight/5 lbs in 1 week
Activity Restrictions/Additional Instructions:
Wound Care Instructions
R leg: Dakin's moist gauze at base of wound, ABD pad and kerlix daily and prn drainage.
L medial lower leg: clean with soap and water, silicone foam change q 2-3 days and prn drainge. (If drainage large can do adaptic, abd and kerlix daily
elevate legs when sitting
increase protein in diet to help with wound healing
Air cushion when sitting-* can bring home when discharged
Follow up at [facility] wound center as scheduled or wound care center call for an appointment.
Stand Alone Forms: Vascular Surg Discharge Instr
Referrals:
UNKNOWN - PT DOES,NOT KNOW [Family Provider]
Pat Laird CRNP [Specified Professional Personl, Vascular Surgery] - 10/27/24 9:30 am
Prescriptions:
New
clopidogrel 75 mg Tablet
75 mg PO DAILY Qty: 30 0RF
Continued
indapamide 2.5 mg Tablet
2.5 mg PO DAILY
metoprolol tartrate 100 mg Tablet
100 mg PO BID
aspirin 81 mg Tablet,Delayed Release (Dr/Ec)
81 mg PO Q OTHER DAY
glimepiride 1 mg Tablet
1 mg PO DAILY
ascorbic acid (vitamin C) [Vitamin C] 500 mg Tablet
500 mg PO DAILY
glucosamine-chondroitin 1,500-1,200 mg/30 mL Liquid
PO
ezetimibe-simvastatin [Vytorin 10-40] 10-40 mg Tablet
1 tab PO QPM
fenofibrate nanocrystallized [Tricor] 145 mg Tablet
145 mg PO QPM
cholecalciferol (vitamin D3) [Vitamin D3] 125 mcg (5,000 unit) Tablet
125 mcg PO DAILY
furosemide 20 mg Tablet
20 mg PO PRN PRN (Reason: if overnight weight >3lbs or LE edema) Qty: 0 0RF
Patient Comments:
pt's instructions report 2-3 times/week. pt stopped taking it approx three weeks ago without informing provider
Discontinued
biotin 10,000 mcg Capsule
10,000 mcg PO
zinc 50 mg Tablet
50 mg PO DAILY
Discharge Orders:
Discharge Patient (As Directed); Ordered 09/27/24
Ordered By: Baljit Ames
Discharge Date and Time
Print Language: HUNGARIAN
[2024-09-27 15:36] VITALS: BP 182/92
== END 2024-09-27 16:30 | DRG 853 ==
LOC: 4 EAST ACU 02:21
PROVIDERS: Hospitalist; Nurse Practitioner; ADMITTING PHYSICIAN Hospitalist; ATTENDING PHYSICIAN Internal Medicine; CONSULT PHYSICIAN Psychiatry & Neurology Clinical Neurophysiology; CONSULT PHYSICIAN Surgery Vascular Surgery; EMERGENCY PHYSICIAN Emergency Medicine
PROC: B41D1ZZ Fluoroscopy of Aorta and Bilateral Lower Extremity Arteries using Low Osmolar Contrast (ICD-10-PCS; 2024-09-24)
PROC: 04FM3ZZ Fragmentation of Right Popliteal Artery, Percutaneous Approach (ICD-10-PCS; 2024-09-24)
PROC: 047M3EZ Dilation of Right Popliteal Artery with Two Intraluminal Devices, Percutaneous Approach (ICD-10-PCS; 2024-09-24)
PROC: 047M34Z Dilation of Right Popliteal Artery with Drug-eluting Intraluminal Device, Percutaneous Approach (ICD-10-PCS; 2024-09-24)
PROC: 0HBKXZX Excision of Right Lower Leg Skin, External Approach, Diagnostic (ICD-10-PCS; 2024-09-24)
DX: A41.9 Sepsis, unspecified organism (principal); I50.33 Acute on chronic diastolic (congestive) heart failure; N17.9 Acute kidney failure, unspecified; I13.0 Hypertensive heart and chronic kidney disease with heart failure and stage 1 through stage 4 chronic kidney disease, or unspecified chronic kidney disease; L97.319 Non-pressure chronic ulcer of right ankle with unspecified severity; L03.115 Cellulitis of right lower limb; I87.2 Venous insufficiency (chronic) (peripheral); E11.51 Type 2 diabetes mellitus with diabetic peripheral angiopathy without gangrene; I70.233 Atherosclerosis of native arteries of right leg with ulceration of ankle; E11.22 Type 2 diabetes mellitus with diabetic chronic kidney disease; N18.32 Chronic kidney disease, stage 3b; I48.91 Unspecified atrial fibrillation; E87.6 Hypokalemia; E11.42 Type 2 diabetes mellitus with diabetic polyneuropathy; I25.10 Atherosclerotic heart disease of native coronary artery without angina pectoris; E78.00 Pure hypercholesterolemia, unspecified; E83.52 Hypercalcemia; E05.00 Thyrotoxicosis with diffuse goiter without thyrotoxic crisis or storm; R26.2 Difficulty in walking, not elsewhere classified; Z85.828 Personal history of other malignant neoplasm of skin; Z91.148 Patient's other noncompliance with medication regimen for other reason; Z87.891 Personal history of nicotine dependence; Z79.82 Long term (current) use of aspirin; Z79.84 Long term (current) use of oral hypoglycemic drugs
CPT/HCPCS: 11104; 71046; 75625; 75710; 80048; 80053; 80061; 81003; 81015; 82306; 82533; 82570; 82962; 83036; 83735; 83880; 83970; 84300; 84436; 84439; 84443; 84481; 84484; 85025; 85027; 86041; 86376; 86800; 86850; 86900; 86901; 87070; 88305; 93005; 93306; 93922; 93925; 93970; 96361; 96374; 97116; 97162; 97167; 97530; 97535; 99285; C1725; C1769; C1874; C1876; C1894; C9765; C9773; Q9967

== ENCOUNTER → 2024-09-30 09:19 | Outpatient (REF) | payer OTHER, MEDICARE, BC, SELFPAY ==
[2024-09-30 09:41] LABS: Hematocrit 37.8 % (37.0-47.0); Hemoglobin 12.3 g/dL (12.0-16.0); Mean Corp Hgb Conc. 32.5 g/dL (33.0-37.0); Mean Corpuscular Volume 96.7 fL (81.0-99.0); Platelet Count 200 10^3/uL (130-400); Red Cell Dist. Width 13.8 % (11.5-14.5)
[2024-09-30 10:00] LABS: ALT (SGPT) < 10 U/L (0-35); AST (SGOT) 19 U/L (14-36); Albumin 3.8 g/dl (3.5-5.0); Alkaline Phosphatase 128 U/L (38-126); Blood Urea Nitrogen 40 mg/dl (7-17); Calcium 10.6 mg/dl (8.4-10.2); Carbon Dioxide 31 mmol/L (22-30); Chloride 100 mmol/L (98-107); Glucose 129 mg/dl (70-99); Magnesium 1.7 mg/dl (1.6-2.3); Potassium 3.6 mmol/L (3.5-5.1); Sodium 139 mmol/L (135-145); Total Protein 6.2 g/dl (6.3-8.2); eGFR 49.55
== END ==
LOC: OLABWHC 09:19
PROVIDERS: ATTENDING PHYSICIAN Family Medicine
DX: I10 Essential (primary) hypertension (principal); E11.9 Type 2 diabetes mellitus without complications; I87.2 Venous insufficiency (chronic) (peripheral); C91.10 Chronic lymphocytic leukemia of B-cell type not having achieved remission; I48.91 Unspecified atrial fibrillation; E78.5 Hyperlipidemia, unspecified
CPT/HCPCS: 36415; 80053; 83735; 85027

== ENCOUNTER → 2024-10-20 13:36 | Outpatient (REF) | payer MEDICARE, BC, SELFPAY | LOC: RAD 13:36 | PROVIDERS: ATTENDING PHYSICIAN Surgery Vascular Surgery; FAMILY PHYSICIAN Student in an Organized Health Care Education/Training Program | DX: I73.9 Peripheral vascular disease, unspecified (principal) | CPT/HCPCS: 93922; 93925 ==

== ENCOUNTER → 2024-10-22 10:01 | Outpatient (REF) | payer OTHER, MEDICARE, BC, SELFPAY ==
[2024-10-22 11:41] LABS: TSH 0.75 uIU/ml (0.47-4.68)
== END ==
LOC: OLABWHC 10:01
PROVIDERS: ATTENDING PHYSICIAN Family Medicine
DX: E03.9 Hypothyroidism, unspecified (principal); E78.5 Hyperlipidemia, unspecified
CPT/HCPCS: 36415; 84439; 84443

== ENCOUNTER → 2025-02-02 11:05 | Outpatient (REF) | payer MEDICARE, BC, SELFPAY | LOC: RAD 11:05 | PROVIDERS: ATTENDING PHYSICIAN Surgery Vascular Surgery; FAMILY PHYSICIAN Student in an Organized Health Care Education/Training Program | DX: I70.233 Atherosclerosis of native arteries of right leg with ulceration of ankle (principal) | CPT/HCPCS: 93922; 93925 ==